=== PATIENT | female | born 1975 | race Caucasian/White ===

== ENCOUNTER → 2017-02-02 | Outpatient (CLI) | payer OTHER ==
[~2017-02-02] MED LIST: ALBU1AER9 INH; ATV5 PO; BUDE1TAB PO; CETI10TA84 PO; CYCL5TAB PO; DIPH25CA65 PO; DOCU-94 PO; HYDR-5688 PO; IBUP-103 PO; LISI-461 PO; METF500T5 PO; MINO2SOL TOP; MULT-506 PO; PRLSR20 PO; PROM25TA9 PO; PSYL0.524 PO
--- NOTE | 2017-02-02 08:30 | DIAGNOSTIC IMAGING REPORT ---
ABDOMINAL ULTRASOUND, RIGHT UPPER QUADRANT HISTORY: Pain. Nausea. ABDOMINAL PAIN, CHOLELITHIASIS. COMPARISON: None. FINDINGS: Pancreas: The pancreas demonstrates a normal echotexture. Liver: Mild fatty infiltration Gallbladder: Multiple small gallstones bilaterally as well as gallbladder sludge. CBD: 5 mm Right kidney: No hydronephrosis. IMPRESSION: Multiple small gallstones with a trace amount of gallbladder sludge within the gallbladder lumen. Normal caliber bile ducts. Fatty infiltration of liver. Electronically signed by: Eugene Daniel M.D. 02/02/2017 8:28 AM Dictated Date/Time: 02/02/2017 8:26 AM
== END | disposition home or self-care (01) ==
LOC: C.ULTRBC 07:44
PROVIDERS: ATTEND Physician Assistant Medical
DX: K80.20 Calculus of gallbladder without cholecystitis without obstruction (principal); K76.0 Fatty (change of) liver, not elsewhere classified

== ENCOUNTER → 2017-03-06 | Outpatient (CLI) | payer OTHER ==
--- NOTE | 2017-03-06 11:00 | DIAGNOSTIC IMAGING REPORT ---
CERVICAL SPINE 5 VIEWS CLINICAL HISTORY: Cervicalgia. FINDINGS: AP, lateral, bilateral oblique, and odontoid views of the cervical spine are compared to study dated 08/08/2011. The skeletal structures are well mineralized. There is no radiographic evidence of fracture or subluxation. The odontoid process and lateral masses appear intact on the open mouth view. The spinolaminar line is preserved. Vertebral body height and alignment are maintained. There is straightening of cervical lordosis with mild reversal centered at C4. 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 This also involves the posterior elements. The spinous processes appear intact. The intervertebral disc spaces are normal. There is no evidence of neuroforaminal stenosis on the oblique views. The prevertebral soft tissues are within normal limits. Visualized apical lung parenchyma appears clear. IMPRESSION: No acute bony abnormality is seen involving the cervical spine. Electronically signed by: Fran Nicole M.D. 03/06/2017 10:59 AM Dictated Date/Time: 03/06/2017 10:57 AM
[2017-03-06 14:52] LABS: BASO % 0.5 %; BASO ABS # 0.05 K/uL (0-0.2); COMPLETE YES; EOS % 1.1 %; IG% 0.2 %; LYMPH % 39.6 %; LYMPH ABS # 3.68 K/uL (1.2-3.4); MEAN CELL VOLUME 91.3 fL (80-100); MEAN CORPUSCULAR HEMOGLOBIN 30.5 pg (25-34); MEAN CORPUSCULAR HGB CONC 33.4 g/dl (32-36); MEAN PLATELET VOLUME 10.9 fL (7.4-10.4); MONO % 7.6 %; PLATELET COUNT 321 K/uL (130-400); RED BLOOD COUNT 4.49 M/uL (4.2-5.4); WHITE BLOOD COUNT 9.29 K/uL (4.8-10.8)
[2017-03-06 15:14] LABS: ALT/SGPT 138 U/L (12-78); BLOOD UREA NITROGEN 14 mg/dl (7-18); BUN/CREATININE RATIO 26.2 (10-20); CARBON DIOXIDE 25 mmol/L (21-32); CHLORIDE 105 mmol/L (98-107); CHOLESTEROL 225 mg/dl (0-200); CREATININE 0.53 mg/dl (0.60-1.20); GLUCOSE 104 mg/dl (70-99); POTASSIUM 3.7 mmol/L (3.5-5.1); SODIUM 139 mmol/L (136-145); TRIGLYCERIDES 179 mg/dl (0-150); VERY LOW DENSITY LIPOPROT CALC 36 mg/dl
[2017-03-06 15:17] LABS: CALCIUM 9.4 mg/dl (8.5-10.1)
[2017-03-06 15:18] LABS: ALB/GLOB RATIO 1.3 (0.9-2); ALKALINE PHOSPHATASE 42 U/L (45-117); AST/SGOT 50 U/L (15-37); CHOLESTEROL/HDL RATIO 5.2; HDL CHOLESTEROL 43 mg/dl; LDL CHOLESTEROL CALCULATED 146 mg/dl
[2017-03-07 06:24] LABS: ESTIMATED AVERAGE GLUCOSE 123 mg/dl; HA1C FLAG Normal (Normal)
== END | disposition home or self-care (01) ==
LOC: C.RADBC 10:15
PROVIDERS: ATTEND Internal Medicine
DX: M54.2 Cervicalgia (principal); E78.1 Pure hyperglyceridemia

== ENCOUNTER → 2017-03-09 | Outpatient (CLI) | payer OTHER ==
[2017-03-09 12:34] LABS: HEPATITIS B AB NEG
== END | disposition home or self-care (01) ==
LOC: C.LABBFT 08:05
PROVIDERS: ATTEND Internal Medicine
DX: R79.89 Other specified abnormal findings of blood chemistry (principal); K76.0 Fatty (change of) liver, not elsewhere classified

== ENCOUNTER 2017-04-02 06:59 | Observation (INO) | payer OTHER ==
[2017-03-22 09:43] VITALS: BMI 35.0
--- NOTE | 2017-03-22 10:21 | PAT Medication Instructions ---
Service Date Mar 22, 2017. Current Home Medication List Albuterol (Proair Hfa), 1 PUFF INH DAILY PRN for Shortness of Breath Cetirizine (Zyrtec), 10 MG PO PRN Cyclobenzaprine Hcl (Flexeril), 5 MG PO HS PRN for RN Diphenhydramine Hcl (Benadryl Allergy), 2 CAP PO PRN Docusate Sodium (Colace), 1 CAP PO BID PRN for PRN Ibuprofen Tab (Advil), 200 MG PO TID PRN for RN Lisinopril (Zestril), 10 MG PO QAM Lorazepam (Ativan *), 0.5 MG PO for Anxiety Metformin Hcl Er (Glucophage Er), 1,000 MG PO QPM Minoxidil (Topical) (Rogaine For Women), 1 DOSE TOP QAM Multivitamin (Multivitamin), 1 TAB PO QAM Omeprazole (Prilosec), 20 MG PO QAM Psyllium (Metamucil), 1 DOSE PO PRN Medication Instructions For Your Scheduled Surgery - Hold the following medications 48 hours prior to surgery: Metformin Hcl Er (Glucophage Er), 1,000 MG PO QPM - Hold the following medications the morning of surgery: Psyllium (Metamucil), 1 DOSE PO PRN Ibuprofen Tab (Advil), 200 MG PO TID PRN for RN (takes only occasionally- not told to hold by surgeon) Multivitamin (Multivitamin), 1 TAB PO QAM Lisinopril (Zestril), 10 MG PO QAM Docusate Sodium (Colace), 1 CAP PO BID PRN for PRN Diphenhydramine Hcl (Benadryl Allergy), 2 CAP PO PRN Cetirizine (Zyrtec), 10 MG PO PRN Minoxidil (Topical) (Rogaine For Women), 1 DOSE TOP QAM - Take the following medications the morning of surgery with a sip of water: Omeprazole (Prilosec), 20 MG PO QAM Lorazepam (Ativan *), 0.5 MG PO for Anxiety Albuterol (Proair Hfa), 1 PUFF INH DAILY PRN for Shortness of Breath (bring with you to hospital on day of surgery/ use if needed) - Take the following medications as scheduled the night before surgery: Docusate Sodium (Colace), 1 CAP PO BID PRN for PRN Cyclobenzaprine Hcl (Flexeril), 5 MG PO HS PRN for RN Albuterol (Proair Hfa), 1 PUFF INH DAILY PRN for Shortness of Breath If you have any questions please call us at [phone] or [phone] ( [place]) or [phone]
[~2017-04-02] VITALS: Ht 162.6 cm; Wt 93.6 kg
[2017-04-02] VITALS (9 sets, daily range): BP systolic 100–114; BP diastolic 63–76; PULSE 69–91; TEMP 36.7–37.1; O2SAT 93–99; Ht 162.6 cm; Wt 93.6 kg
[~2017-04-02 06:59] MED LIST changes: -BUDE1TAB PO; +CEFUROXIME IV 1,500 MG in DEXTROSE 5% 100ML IV SCH; -HYDR-5688 PO; +LACTATED RINGER'S 1000ML 1,000 ML IV SCH; -PROM25TA9 PO
[2017-04-02] MEDS ORDERED: MIDAZOLAM HCL 1 MG/ML 2ML VIAL ONE (07:41)
[2017-04-02] MEDS ORDERED: FENTANYL CITRATE INJ 50 MCG/1 ML 2 ML VIAL ONE ×4 (07:41→10:32)
--- NOTE | 2017-04-02 08:15 | History & Physical Bridge Note ---
H&P Re-Evaluation Bridge Note: I have examined the patient, reviewed the History & Physical and in the interval since the performance of the History & Physical I have noted the following changes of clinical significance: Dr Nuno requeste a liver bx- will attempt this at time of lap fang- discussed with pt and family
[2017-04-02] MEDS ORDERED: BUPIVACAINE 0.5 % 5 MG/1 ML MPF 30ML VIAL ONE (09:07)
[2017-04-02] MEDS ORDERED: ACETAMINOPHEN 1000 MG/100 ML IV IV ONE (09:17)
[2017-04-02] MEDS ORDERED: ROCURONIUM BROMIDE 10 MG/ML 5 ML VIAL ONE (09:29)
[2017-04-02] MEDS ORDERED: LIDOCAINE HCL 2% 2 ML VIAL (20MG/ML) ONE (09:29)
[2017-04-02] MEDS ORDERED: ONDANSETRON INJ 2 MG/ML 2 ML VIAL ONE ×2 (09:29→10:16)
[2017-04-02] MEDS ORDERED: GLYCOPYRROLATE INJ 0.2 MG/ML VIAL ONE (09:29)
[2017-04-02] MEDS ORDERED: PROPOFOL IV EMULSION 10 MG/ML 20 ML VIAL IV ONE ×2 (09:29)
[2017-04-02] MEDS ORDERED: NEOSTIGMINE METHYLSULFATE 5 MG/5 ML SYR ONE (09:29)
[2017-04-02] MEDS ORDERED: DEXAMETHASONE SOD INJ 4 MG/ML VIAL ONE (09:29)
--- NOTE | 2017-04-02 10:02 | [facility] Post Operative Brief Note ---
Immediate Operative Summary Operative Date Apr 02, 2017. Pre-Operative Diagnosis Biliary Colic Post-Operative Diagnosis Same Procedure(s) Performed Laparoscopic Cholecystectomy attempted liver bx Surgeon Dr Suarez Evening Anchor Surgeon(s) Brad Altamirano PA-C Estimated Blood Loss 15 ml Findings normal appearing liver, multiple Lg gallstones Specimens A. gallbladder Anesthesia gen Complication(s) None Disposition Recovery Room / PACU
[2017-04-02] MEDS ORDERED: HYDR-5688 PO (10:11)
[2017-04-02] MEDS ORDERED: ALBUTEROL HFA 8 GM INHALER INH PRN (10:15)
[2017-04-02] MEDS ORDERED: ATROPINE SULFATE 0.1 MG/ML 5ML SYR IV PRN (10:15)
[2017-04-02] MEDS ORDERED: PROMETHAZINE HCL INJ 25 MG in SODIUM CHLORIDE 0.9% 50ML 50 ML IV PRN (10:15)
[2017-04-02] MEDS ORDERED: PROMETHAZINE HCL INJ 12.5 MG in SODIUM CHLORIDE 0.9% 50ML 50 ML IV PRN (10:15)
[2017-04-02] MEDS ORDERED: HYDROCODONE/ACETAMOPHEN 5/325MG TAB PO PRN ×2 (10:15)
[2017-04-02] MEDS ORDERED: MoRPHine SULFATE 4 MG/ML 1 ML CARP\\VIAL IV PRN (10:15)
[2017-04-02] MEDS ORDERED: FENTANYL CITRATE INJ 50 MCG/1 ML 2 ML VIAL IV PRN (10:15)
[2017-04-02] MEDS ORDERED: LABETALOL HCL IV 5 MG/ML 20ML IV PRN (10:15)
[2017-04-02] MEDS ORDERED: ONDANSETRON INJ 2 MG/ML 2 ML VIAL IV PRN (10:15)
[2017-04-02] MEDS ORDERED: KETOROLAC TROMETHAMINE 30 MG/ML VIAL IV. PRN (10:15)
[2017-04-02] MEDS ORDERED: KETOROLAC TROMETHAMINE 30 MG/ML VIAL ONE (10:16)
--- NOTE | 2017-04-02 10:16 | Discharge Instructions ---
Discharge Instructions Date of Service Apr 02, 2017. Admission Reason for Admission: Ruq Abdominal Pain, Biliary Colic, Diabetes Discharge Discharge Diagnosis / Problem: chronic cholecystitis Discharge Goals Goal(s): Decrease discomfort, Improve function, Improve disease control Activity Recommendations Activity Limitations: as noted below Lifting Limitations: no more than 25 pounds Exercise/Sports Limitations: until after follow-up appointment May Resume Sexual Activity: when tolerated Shower/Bathe: tomorrow Driving or Machine Use: resume 3 days after discharge SPECIAL CARE INSTRUCTIONS: * Cover incisions and change daily for comfort/drainage. * May use ibuprofen for pain as tolerated. * Expect some swelling and bruising. Call your doctor if: * Temperature above 101 degrees * Pain not relieved by pain medicine ordered * There is increased drainage or redness from any incision * You have any unanswered questions or concerns [phone]. FOLLOW UP VISIT: If not already scheduled, please call the office for a follow-up visit. for next week- some sutures OFFICE PHONE NUMBER: Dr. Suarez Office . Current Hospital Diet Patient's current hospital diet: Diabetes Type 2 Diet Discharge Diet Recommended Diet: Diabetes Type 2 Diet Procedures Procedures Performed: Laparoscopic Cholecystectomy attempted liver bx Pending Studies Studies pending at discharge: no Laboratory Results Hemoglobin A1c Test 03/06/17 10:20 Range/Units Estimated Average Glucose 123 mg/dl Hemoglobin A1c 5.9 H 4.5-5.6 % Lipid Panel Test 03/06/17 10:20 Range/Units Triglycerides Level 179 H 0-150 mg/dl Cholesterol Level 225 H 0-200 mg/dl HDL Cholesterol 43 mg/dl Cholesterol/HDL Ratio 5.2 LDL Cholesterol, Calculated 146 mg/dl Medical Emergencies . Who to Call and When: Medical Emergencies: If at any time you feel your situation is an emergency, please call 911 immediately. . Non-Emergent Contact Non-Emergency issues call your: Primary Care Provider, Surgeon . "Provider Documentation" section prepared by Hollis Suarez. . VTE Core Measure Inpt VTE Proph given/why not?: SCD's
--- NOTE | 2017-04-02 10:46 | Anesthesiology Progress Note ---
Anesthesia Post Op Note Date & Time Apr 02, 2017 at 10:46 Vital Signs Pain Intensity: 4 Vital Signs Past 12 Hours Date Time Temp Pulse Resp B/P (MAP) Pulse Ox O2 Delivery O2 Flow Rate FiO2 04/02/17 10:30 68 16 112/71 100 Mask 2 04/02/17 10:20 65 16 122/82 100 Mask 10 04/02/17 10:10 70 16 121/83 100 Mask 10 04/02/17 10:03 36.6 92 16 133/81 98 Mask 10 04/02/17 07:46 37.1 88 18 113/76 (88) 99 Room Air
[2017-04-02] MEDS ORDERED: PROMETHAZINE HCL INJ 6.25 MG in SODIUM CHLORIDE 0.9% 50ML 50 ML IV PRN (11:00)
--- NOTE | 2017-04-02 11:03 | OPERATIVE REPORT ---
DATE OF OPERATION: 04/02/2017 NAME OF OPERATION: Laparoscopic cholecystectomy with attempted liver biopsy. PREOPERATIVE DIAGNOSES: Biliary colic with cholelithiasis and mildly elevated LFTs. POSTOPERATIVE DIAGNOSIS: Same. STAFF SURGEON: Dr. Suarez. ASSOCIATE PROFESSOR OF LIBRARY MEDIA: Brad Altamirano PA-C. DESCRIPTION OF PROCEDURE: The patient was brought in the operating room and placed on the operating table in supine position, orogastric tube, pneumatic stockings were placed. Her abdomen was prepped and draped in usual fashion. Using 0.5% plain Marcaine, all incisions were anesthetized. Incision was made above the umbilicus, carrying dissection down through significant adipose tissue, identifying the fascia, placing a Veress needle producing pneumoperitoneum. An 11 mm port placed at this level. Under visualization, three 5 mm ports placed, 1 cephalad and 2 laterally. The patient was placed in reverse Trendelenburg position, rotated to the left. At this point, the gallbladder was grasped and retracted. It was somewhat difficult secondary to the size of the liver and her body habitus, but we were able to dissect the eugenie hepatis, identifying multiple large stones in the gallbladder. The cystic duct and cystic artery were identified. These were clipped and transected and the gallbladder dissected away from the liver bed in the usual fashion. At this point, through a separate small stab incision, I attempted to perform liver biopsy using a Jose-Cut needle with the pneumoperitoneum and thick adipose tissue. I was unable to pass the Jose-Cut needle safely. At this point, the gallbladder was placed in an Endobag and then removed through the umbilical site. I did have to enlarge the umbilical fascial incision secondary to the number of stones in the gallbladder. All ports were then removed. The fascia at the umbilicus closed using interrupted 0 PDS suture and then the skin reapproximated using 5-0 Prolene suture. The patient was transferred to recovery room in stable condition. I attest to the content of the Intraoperative Record and any orders documented therein. Any exception s are noted below.
[2017-04-02] MEDS ORDERED: IV FLUIDS COMPLETED PRN (11:15)
[2017-04-02] MEDS: PROMETHAZINE HCL INJ 12.5 MG in SODIUM CHLORIDE 0.9% 50ML 50 ML IV PRN ×2 (12:13→21:18)
[2017-04-02] MEDS ORDERED: LACTATED RINGER'S 1000ML 1,000 ML IV SCH (12:30)
[2017-04-02] MEDS: MoRPHine SULFATE 2 MG/ML CARP IV PRN ×2 (13:24→18:59)
[2017-04-02] MEDS ORDERED: LORAZEPAM INJ 0.5 MG in SYRINGE 0.25 ML IV PRN (13:45)
[2017-04-02] MEDS ORDERED: LORAZEPAM 0.5 MG TAB PO PRN (14:00)
[2017-04-02] MEDS: CEFUROXIME IV 1,500 MG in DEXTROSE 5% 100ML 100 ML IV SCH ×2 (14:36→21:43)
[2017-04-02 14:49] LABS: BASO % 0.2 %; BASO ABS # 0.02 K/uL (0-0.2); COMPLETE YES; IG% 0.2 %; LYMPH % 9.1 %; LYMPH ABS # 0.99 K/uL (1.2-3.4); MEAN CELL VOLUME 88.3 fL (80-100); MEAN CORPUSCULAR HEMOGLOBIN 29.1 pg (25-34); MEAN PLATELET VOLUME 9.4 fL (7.4-10.4); MONO % 1.1 %; NEUT % 89.4 %; PLATELET COUNT 311 K/uL (130-400); RED BLOOD COUNT 4.53 M/uL (4.2-5.4)
[2017-04-02 15:15] LABS: BUN/CREATININE RATIO 16.8 (10-20); CALCIUM 8.4 mg/dl (8.5-10.1); CREATININE 0.51 mg/dl (0.60-1.20); POTASSIUM 4.1 mmol/L (3.5-5.1)
--- NOTE | 2017-04-02 16:16 | History and Physical ---
History & Physical Date & Time of Service: Apr 02, 2017 at 15:20 Chief Complaint: Ruq Abdominal Pain, Biliary Colic, Diabetes Primary Care Physician: Man Nuno M.D. History of Present Illness Patient is a 41 year old female with a past medical history of hypertension and diabetes that is day 0 s/p laparoscopic cholecystectomy. The patient is currently doing well with no acute complaints after the surgery. She did have some nausea afterwards but was treated with Phenergan and is feeling better. She denies any chest pain, cough, shortness of breath, pain in her calves, headache, lightheadedness, or fever. She does appreciate some abdominal discomfort over the right side of the abdomen over the surgical sites. She did not take her morning doses of metformin or lisinopril today. Past Medical/Surgical History Medical Problems: (1) Asthma Status: Chronic (2) IBS (irritable bowel syndrome) Status: Chronic Family History Cancer Diabetes mellitus Hypertension No significant family history Social History Social EtOH use, No tobacco use Smoking Status: Never Smoker Smokeless Tobacco Use: No Alcohol Use: socially Drug Use: none Marital Status: Housing status: lives with family Occupational Status: employed Multi-Drug Resistant Organisms History of MDRO: No Allergies Coded Allergies: Cat Dander (Verified Allergy, Unknown, CAT AND DOG DANDER-ITCHY SNEEZING, 03/27/17) Metaxalone (Verified Allergy, Unknown, UNKNOWN, 03/27/17) POLLEN (Verified Allergy, Unknown, SNEEZING,ITCHY EYES, 03/27/17) Home Medications Scheduled Cetirizine (Zyrtec), 10 MG PO PRN Diphenhydramine Hcl (Benadryl Allergy), 2 CAP PO PRN Lisinopril (Zestril), 10 MG PO QAM Metformin Hcl Er (Glucophage Er), 1,000 MG PO QPM Minoxidil (Topical) (Rogaine For Women), 1 DOSE TOP QAM Multivitamin (Multivitamin), 1 TAB PO QAM Omeprazole (Prilosec), 20 MG PO QAM Psyllium (Metamucil), 1 DOSE PO PRN Scheduled PRN Albuterol (Proair Hfa), 1 PUFF INH DAILY PRN for Shortness of Breath Cyclobenzaprine Hcl (Flexeril), 5 MG PO HS PRN for RN Docusate Sodium (Colace), 1 CAP PO BID PRN for PRN Hydrocodone/Acetaminophen 5MG/325MG ([place] 5MG/325MG), 1-2 TABLET PO q 6 hrs PRN for Pain Ibuprofen Tab (Advil), 200 MG PO TID PRN for RN Lorazepam (Ativan *), 0.5 MG PO for Anxiety Review of Systems Constitutional: + problem reported (Nausea), No fever, No chills Eyes: No diplopia Respiratory: No cough, No shortness of breath Cardiovascular: No chest pain, No edema, No palpitations Abdomen: + pain (Right side of the abdomen over the incisional sites), No nausea, No vomiting, No GI bleeding Genitourinary - Female: No dysuria Endocrine: + fatigue Integumentary: No rash Physical Exam Vital Signs Date Time Temp Pulse Resp B/P (MAP) Pulse Ox O2 Delivery O2 Flow Rate FiO2 04/02/17 14:32 36.8 85 18 100/65 (77) 97 Nasal Cannula 2.0 04/02/17 13:31 36.8 73 16 106/70 (82) 96 Nasal Cannula 2.0 04/02/17 12:38 69 18 114/73 (87) 97 Nasal Cannula 2.0 04/02/17 12:11 36.8 69 16 111/74 (86) 96 Nasal Cannula 2.0 04/02/17 11:30 Nasal Cannula 2.0 04/02/17 11:30 36.7 75 18 108/70 (83) 98 Nasal Cannula 2.0 04/02/17 11:30 Nasal Cannula 04/02/17 11:05 36.5 67 16 124/74 98 Nasal Cannula 2 04/02/17 10:50 67 16 114/72 98 Nasal Cannula 2 04/02/17 10:40 67 16 115/75 100 Nasal Cannula 2 04/02/17 10:30 68 16 112/71 100 Mask 2 04/02/17 10:20 65 16 122/82 100 Mask 10 04/02/17 10:10 70 16 121/83 100 Mask 10 04/02/17 10:03 36.6 92 16 133/81 98 Mask 10 04/02/17 07:46 37.1 88 18 113/76 (88) 99 Room Air General Appearance: WD/WN, no apparent distress Head: normocephalic, atraumatic Eyes: normal inspection, sclerae normal Respiratory/Chest: chest non-tender, lungs clear, normal breath sounds Cardiovascular: regular rate, rhythm, no edema, no gallop, no murmur, normal peripheral pulses Abdomen/GI: normal bowel sounds, + pertinent finding (Tenderness over right side of abdomen, Dressings over 5 laparoscopic sites c/d/i with dressings overtop) Extremities/Musculoskelatal: normal inspection, no calf tenderness, no pedal edema Neurologic/Psych: no motor/sensory deficits, alert, normal mood/affect, oriented x 3 Skin: no rash Diagnostics Laboratory Results Results Past 24 Hours Test 04/02/17 07:21 04/02/17 07:24 04/02/17 11:13 04/02/17 14:35 Range/Units Bedside Urine Test NEG NEG Bedside Glucose 127 125 70-90 mg/dl White Blood Count 10.90 4.8-10.8 K/uL Red Blood Count 4.53 4.2-5.4 M/uL Hemoglobin 13.2 12.0-16.0 g/dL Hematocrit 40.0 37-47 % Mean Corpuscular Volume 88.3 80-100 fL Mean Corpuscular Hemoglobin 29.1 25-34 pg Mean Corpuscular Hemoglobin Concent 33.0 32-36 g/dl Platelet Count 311 130-400 K/uL Mean Platelet Volume 9.4 7.4-10.4 fL Neutrophils (%) (Auto) 89.4 % Lymphocytes (%) (Auto) 9.1 % Monocytes (%) (Auto) 1.1 % Eosinophils (%) (Auto) 0.0 % Basophils (%) (Auto) 0.2 % Neutrophils # (Auto) 9.75 1.4-6.5 K/uL Lymphocytes # (Auto) 0.99 1.2-3.4 K/uL Monocytes # (Auto) 0.12 0.11-0.59 K/uL Eosinophils # (Auto) 0.00 0-0.5 K/uL Basophils # (Auto) 0.02 0-0.2 K/uL RDW Standard Deviation 40.8 36.4-46.3 fL RDW Coefficient of Variation 12.6 11.5-14.5 % Immature Granulocyte % (Auto) 0.2 % Immature Granulocyte # (Auto) 0.02 0.00-0.02 K/uL Sodium Level 142 136-145 mmol/L Potassium Level 4.1 3.5-5.1 mmol/L Chloride Level 107 98-107 mmol/L Carbon Dioxide Level 27 21-32 mmol/L Anion Gap 8.0 3-11 mmol/L Blood Urea Nitrogen 9 7-18 mg/dl Creatinine 0.51 0.60-1.20 mg/dl Est Creatinine Clear Calc Drug Dose 162.7 ml/min Estimated GFR () 139.4 Estimated GFR (Non- 120.3 BUN/Creatinine Ratio 16.8 10-20 Random Glucose 134 70-99 mg/dl Calcium Level 8.4 8.5-10.1 mg/dl Impression Assessment and Plan Patient is a 41 year old female that is day 0 s/p laparoscopic cholecystectomy 1) Laparoscopic Cholecystectomy Day 0 - Patient being monitored by General Surgeon Dr. Suarez - No complications during surgery - Plan to discharge home tomorrow 2) Diabetes Mellitus Type 2 - Resume Metformin home dose on discharge 3) Hypertension - Blood pressure stable - Resume Lisinopril home dose on discharge 4) DVT Prophylaxis - SCDs - As per surgery 5) Dispo - Plan to discharge home tomorrow 6) Code Status - Full Code I agree with resident assessment and plan and have seen and examined pt myself VSS and labs reviewed Cont management for DMII and HTN Pain controlled OK to DC from medical standpoint Dispo and DVT ppx per primary team Level of Care Med/Surg VTE Prophylaxis VTE Risk Assessment Done? Y/N: Yes Risk Level: Moderate Given or contraindicated: SCD's
[2017-04-02] MEDS: ONDANSETRON INJ 2 MG/ML 2 ML VIAL IV PRN (17:07)
[2017-04-03] MEDS: MoRPHine SULFATE 2 MG/ML CARP IV PRN ×2 (00:07→05:25)
[2017-04-03 04:04] VITALS: BP 108/71; PULSE 80; TEMP 36.7; O2SAT 95
[2017-04-03] MEDS: ONDANSETRON INJ 2 MG/ML 2 ML VIAL IV PRN (05:24)
[2017-04-03 06:17] LABS: HEMATOCRIT 37.1 % (37-47); MEAN CELL VOLUME 89.8 fL (80-100); MEAN CORPUSCULAR HEMOGLOBIN 30.3 pg (25-34); MEAN CORPUSCULAR HGB CONC 33.7 g/dl (32-36); MEAN PLATELET VOLUME 9.8 fL (7.4-10.4); PLATELET COUNT 298 K/uL (130-400); RED BLOOD COUNT 4.13 M/uL (4.2-5.4); WHITE BLOOD COUNT 11.32 K/uL (4.8-10.8)
[2017-04-03 06:58] LABS: ALB/GLOB RATIO 1.1 (0.9-2); ALKALINE PHOSPHATASE 41 U/L (45-117); ALT/SGPT 102 U/L (12-78); AST/SGOT 52 U/L (15-37); BLOOD UREA NITROGEN 8 mg/dl (7-18); BUN/CREATININE RATIO 16.6 (10-20); CALCIUM 8.2 mg/dl (8.5-10.1); CARBON DIOXIDE 28 mmol/L (21-32); CHLORIDE 107 mmol/L (98-107); CREATININE 0.49 mg/dl (0.60-1.20); GLUCOSE 95 mg/dl (70-99); POTASSIUM 3.4 mmol/L (3.5-5.1); SODIUM 142 mmol/L (136-145)
[2017-04-03] MEDS ORDERED: PROM25TA9 PO (07:17)
[2017-04-03] MEDS ORDERED: POTASSIUM CHLR 10 MEQ / WTR 10 MEQ in PREMIXED WATER 100 ML IV SCH (07:30)
[2017-04-03 07:51] VITALS: BP 114/75; PULSE 66; TEMP 36.2; O2SAT 95
[2017-04-03 08:04] VITALS: O2SAT 95
--- NOTE | 2017-04-03 08:40 | DISCHARGE SUMMARY ---
PRINCIPAL DIAGNOSIS: Biliary colic. HISTORY OF PRESENT ILLNESS: The patient is a 41-year-old female, who has been having upper abdominal pain and found on ultrasound to have multiple gallstones, brought into the hospital for elective cholecystectomy. On 04/02/2017, the patient was taken to the operating room where she underwent laparoscopic cholecystectomy and attempted a liver biopsy requested by Dr. Nuno. I was unable to perform the liver biopsy secondary to the needle not being long enough to perform it laparoscopically. Her liver did appear to be normal with mild fatty infiltrate. She did very well from her operation, and is felt stable for discharge home today to be followed in the surgical clinic within 1 week.
[2017-04-03 08:59] VITALS: BP 114/75; PULSE 66; TEMP 36.2; O2SAT 95
[2017-04-03] MEDS ORDERED: LISINOPRIL 10 MG TAB PO SCH (09:00)
[2017-04-03] MEDS ORDERED: PANTOprazole SOD 40 MG TAB PO SCH (09:00)
== END 2017-04-03 09:30 | disposition home or self-care (01) ==
LOC: C.ACU 06:59 → C.MSW 10:10 → ENRESERV 10:32
PROVIDERS: ADMIT Surgery; ATTEND Surgery
DX: K80.10 Calculus of gallbladder with chronic cholecystitis without obstruction (principal); J45.909 Unspecified asthma, uncomplicated; E11.9 Type 2 diabetes mellitus without complications; K21.9 Gastro-esophageal reflux disease without esophagitis; E78.1 Pure hyperglyceridemia; I10 Essential (primary) hypertension; K58.9 Irritable bowel syndrome, unspecified

== ENCOUNTER → 2017-06-01 | Outpatient (CLI) | payer OTHER ==
[~2017-06-01] MED LIST changes: -CEFUROXIME IV 1,500 MG in DEXTROSE 5% 100ML IV SCH; +HYDR-5688 PO; -LACTATED RINGER'S 1000ML 1,000 ML IV SCH; +PROM25TA9 PO
--- NOTE | 2017-06-01 13:15 | DIAGNOSTIC IMAGING REPORT ---
BILATERAL LOWER EXTREMITY VENOUS DOPPLER HISTORY: PERIPHERAL EDEMA COMPARISON STUDY: None. FINDINGS: There is normal compressibility, flow, and augmentation within the bilateral lower extremity deep venous systems. IMPRESSION: No DVT within the right or left lower extremity. Electronically signed by: Norberto Lovelace M.D. 06/01/2017 1:14 PM Dictated Date/Time: 06/01/2017 1:13 PM
[2017-06-01 13:37] LABS: BASO % 0.5 %; BASO ABS # 0.04 K/uL (0-0.2); COMPLETE YES; EOS % 1.9 %; IG% 0.1 %; LYMPH % 35.8 %; LYMPH ABS # 3.09 K/uL (1.2-3.4); MEAN CELL VOLUME 89.9 fL (80-100); MEAN CORPUSCULAR HEMOGLOBIN 30.6 pg (25-34); MEAN PLATELET VOLUME 10.2 fL (7.4-10.4); MONO % 7.9 %; NEUT % 53.8 %; PLATELET COUNT 347 K/uL (130-400); RED BLOOD COUNT 4.45 M/uL (4.2-5.4); WHITE BLOOD COUNT 8.63 K/uL (4.8-10.8)
[2017-06-01 14:14] LABS: ALB/GLOB RATIO 1.2 (0.9-2); AST/SGOT 48 U/L (15-37); BLOOD UREA NITROGEN 14 mg/dl (7-18); BUN/CREATININE RATIO 24.1 (10-20); CALCIUM 9.5 mg/dl (8.5-10.1); CARBON DIOXIDE 26 mmol/L (21-32); CHLORIDE 103 mmol/L (98-107); CREATININE 0.59 mg/dl (0.60-1.20); GLUCOSE 102 mg/dl (70-99); POTASSIUM 3.7 mmol/L (3.5-5.1); SODIUM 137 mmol/L (136-145)
[2017-06-01 14:36] LABS: ALKALINE PHOSPHATASE 49 U/L (45-117); ALT/SGPT 110 U/L (12-78)
== END | disposition home or self-care (01) ==
LOC: C.ULTRBC 12:13
PROVIDERS: ATTEND Physician Assistant Medical
DX: I10 Essential (primary) hypertension (principal); K21.9 Gastro-esophageal reflux disease without esophagitis; R20.2 Paresthesia of skin; R79.89 Other specified abnormal findings of blood chemistry; R60.9 Edema, unspecified

== ENCOUNTER → 2017-10-04 | Outpatient (CLI) | payer OTHER ==
[~2017-10-04] MED LIST changes: -HYDR-5688 PO
[2017-10-04 13:12] LABS: BASO % 0.4 %; BASO ABS # 0.03 K/uL (0-0.2); COMPLETE YES; EOS % 1.6 %; IG% 0.1 %; LYMPH % 36.1 %; LYMPH ABS # 2.65 K/uL (1.2-3.4); MEAN CELL VOLUME 90.3 fL (80-100); MEAN CORPUSCULAR HEMOGLOBIN 30.2 pg (25-34); MEAN CORPUSCULAR HGB CONC 33.4 g/dl (32-36); MEAN PLATELET VOLUME 10.1 fL (7.4-10.4); NEUT % 53.8 %; PLATELET COUNT 328 K/uL (130-400); RED BLOOD COUNT 4.54 M/uL (4.2-5.4); WHITE BLOOD COUNT 7.34 K/uL (4.8-10.8)
[2017-10-04 13:21] LABS: ALT/SGPT 69 U/L (12-78); BLOOD UREA NITROGEN 10 mg/dl (7-18); BUN/CREATININE RATIO 17.1 (10-20); CALCIUM 8.9 mg/dl (8.5-10.1); CARBON DIOXIDE 26 mmol/L (21-32); CHLORIDE 105 mmol/L (98-107); CHOLESTEROL 217 mg/dl (0-200); CREATININE 0.59 mg/dl (0.60-1.20); GLUCOSE 112 mg/dl (70-99); SODIUM 137 mmol/L (136-145); TRIGLYCERIDES 166 mg/dl (0-150); VERY LOW DENSITY LIPOPROT CALC 33 mg/dl
[2017-10-04 13:24] LABS: ALB/GLOB RATIO 1.3 (0.9-2); ALKALINE PHOSPHATASE 47 U/L (45-117); AST/SGOT 28 U/L (15-37); CHOLESTEROL/HDL RATIO 4.8; ESTIMATED AVERAGE GLUCOSE 120 mg/dl; HA1C FLAG Normal (Normal); HDL CHOLESTEROL 45 mg/dl; LDL CHOLESTEROL CALCULATED 139 mg/dl
== END | disposition home or self-care (01) ==
LOC: C.LABBFT 10:00
PROVIDERS: ATTEND Internal Medicine
DX: J45.909 Unspecified asthma, uncomplicated (principal); I10 Essential (primary) hypertension; R79.89 Other specified abnormal findings of blood chemistry; E11.9 Type 2 diabetes mellitus without complications; E78.1 Pure hyperglyceridemia; K76.0 Fatty (change of) liver, not elsewhere classified

== ENCOUNTER → 2017-10-16 | Outpatient (CLI) | payer OTHER ==
[~2017-10-16] MED LIST changes: -PROM25TA9 PO
--- NOTE | 2017-10-16 12:10 | DIAGNOSTIC IMAGING REPORT ---
CERVICAL SPINE 2 OR 3 VIEWS HISTORY: Pain M54.2 Neck painW19.XXXA FallM25.519 Shoulder [id number] COMPARISON: None. FINDINGS: The cervical spine is visualized from C1 through the superior endplate of T1. There is no fracture. No subluxation. Disc spaces are preserved. Prevertebral soft tissues and the atlantodens interval are intact. Mild straightening of the cervical curvature apparently due to muscular spasm IMPRESSION: No fracture or subluxation within the cervical spine. Mild muscle spasm. The above report was generated using voice recognition software. It may contain grammatical, syntax or spelling errors. Electronically signed by: Eugene Daniel M.D. 10/16/2017 12:09 PM Dictated Date/Time: 10/16/2017 12:09 PM
--- NOTE | 2017-10-16 12:12 | DIAGNOSTIC IMAGING REPORT ---
R SHOULDER MIN 2 VIEWS ROUTINE CLINICAL HISTORY: M54.2 Neck painW19.XXXA FallM25.519 Shoulder [id number] pain COMPARISON: None. DISCUSSION: The bones and joint spaces appear intact. There is no evidence of fracture, dislocation or bony disease. Minimal degenerative change glenohumeral as well as acromioclavicular joints. IMPRESSION: Minimal degenerative change. No acute bony abnormality. The above report was generated using voice recognition software. It may contain grammatical, syntax or spelling errors. Electronically signed by: Eugene Daniel M.D. 10/16/2017 12:10 PM Dictated Date/Time: 10/16/2017 12:10 PM
--- NOTE | 2017-10-16 12:13 | DIAGNOSTIC IMAGING REPORT ---
R CLAVICLE CLINICAL HISTORY: M54.2 Neck painW19.XXXA FallM25.519 Shoulder [id number] trauma COMPARISON: None. DISCUSSION: The bones and joint spaces appear intact. There is no evidence of fracture, dislocation or bony disease. There is no evidence for soft tissue swelling. IMPRESSION: Negative study. The above report was generated using voice recognition software. It may contain grammatical, syntax or spelling errors. Electronically signed by: Eugene Daniel M.D. 10/16/2017 12:11 PM Dictated Date/Time: 10/16/2017 12:11 PM
--- NOTE | 2017-10-16 12:20 | DIAGNOSTIC IMAGING REPORT ---
R RIBS UNILATERAL WITH PA CHEST CLINICAL HISTORY: W19.XXXA FallM25.519 Shoulder [id number]. Right rib pain. COMPARISON STUDY: Chest 09/22/2013. FINDINGS: No rib fractures. No pneumothorax. The lungs are clear. The heart is normal in size. Cholecystectomy. No acute rib fractures. IMPRESSION: No acute rib fractures. No pneumothorax. Electronically signed by: Norberto Lovelace M.D. 10/16/2017 12:19 PM Dictated Date/Time: 10/16/2017 12:13 PM
== END | disposition home or self-care (01) ==
LOC: C.RADBC 10:49
PROVIDERS: ATTEND Physician Assistant Medical
DX: M54.2 Cervicalgia (principal); M25.511 Pain in right shoulder; R07.81 Pleurodynia; M62.838 Other muscle spasm; M89.8X1 Other specified disorders of bone, shoulder; W19.XXXA Unspecified fall, initial encounter

== ENCOUNTER → 2018-01-03 | Outpatient (CLI) | payer BC ==
--- NOTE | 2018-01-03 18:31 | DIAGNOSTIC IMAGING REPORT ---
TWO VIEW CHEST CLINICAL HISTORY: Acute bronchitis. FINDINGS: PA and lateral chest radiographs are compared to study dated 09/30/2014. The cardiomediastinal silhouette is unremarkable. Patchy airspace consolidation is identified in the lingula. The lungs are otherwise clear. No pleural effusion is seen. There is no pneumothorax. The bony thorax appears intact. Cholecystectomy clips are seen in the right upper quadrant. IMPRESSION: There is patchy airspace consolidation identified in the lingula, typical in appearance for pneumonia. Radiographic follow-up to resolution is recommended. Electronically signed by: Fran Nicole M.D. 01/03/2018 6:29 PM Dictated Date/Time: 01/03/2018 6:29 PM
== END | disposition home or self-care (01) ==
LOC: C.RAD 17:17
PROVIDERS: ATTEND Nurse Practitioner Adult Health
DX: J20.8 Acute bronchitis due to other specified organisms (principal)

== ENCOUNTER 2022-03-08 07:58 | Observation (INO) ==
[2022-03-08] MEDS ORDERED: SODIUM CHLORIDE 0.9% 1000ML 1,000 ML IV ONE (08:32)
--- NOTE | 2022-03-08 08:32 | Emergency Department Note ---
Impression & Plan Arm paresthesia, left, Arm weakness, Confusion ED Provider Note NAME: TATE ROBINS AGE: 46 SEX: F : 1975 ARRIVES VIA: Walk-In INFORMANT: Patient ED PROVIDER(S): Randolph Rey DO CHIEF COMPLAINT: blurry vision, FROST, Left arm weak HPI: Patient is a 46-year-old female with a past medical history hypertension, hyperlipidemia, diabetes, IBS who presents the ER for symptoms which have been present for the past 2 weeks. She notes that she has had a headache on the right side of her head off and on. Currently does not have a headache. She admits to breath blurry vision which has been present for the past 2 weeks. It is present bilaterally. He notes that over the past 2 to 3 days she has had left arm weakness. She is dropping things and having difficulty holding things. She is also noticed intermittently that her right eye will deviate outward. She denies any other weakness or numbness. No chest pain or shortness of breath. No nausea vomiting or diarrhea. No dysuria, urgency, or frequency. No other exacerbating or remitting factors. She was sent in by her PCP for further evaluation. Does admit to a family history of MS. Also admits to intermittent paresthesias and weakness over the past several months/years. ROS: See above HPI for pertinent positives & negatives. A total of 10 systems reviewed and were otherwise negative. PAST MEDICAL HISTORY:See Below PAST SURGICAL HISTORY:See Below FAMILY HISTORY:See Below SOCIAL HISTORY:See Below HOME MEDICATIONS:See Below ALLERGIES:See Below VITALS:See Below PHYSICAL EXAMINATION: GENERAL: Sitting up in bed, alert, well appearing, well nourished, no distress, non-toxic EYE EXAM: normal conjunctiva. PERRL and EOM's intact. OROPHARYNX: no exudate, no erythema, lips, buccal mucosa, and tongue normal and mucous membranes are moist NECK: supple, no nuchal rigidity, no adenopathy, non-tender LUNGS: Clear to auscultation. Normal chest wall mechanics HEART: no murmurs, S1 normal and S2 normal ABDOMEN: abdomen soft, non-tender, normo-active bowel sounds, no masses, no rebound or guarding. BACK: Back is symmetrical on inspection and there is no deformity, no midline tenderness, no CVA tenderness. SKIN: no rashes and no bruising UPPER EXTREMITIES: upper extremities are grossly normal. LOWER EXTREMITIES: No pitting edema. NEURO EXAM: Normal sensorium, cranial nerves II-XII intact, normal speech, left arm is weaker than right with grasp as well as flexion extension of the shoulder and elbow no weakness of legs. No drift. Finger to nose intact. Gross sensation intact. MEDICAL DECISION MAKING: Patient is a 46-year-old female who presents ER for the above-stated complaint. IV was established blood work was obtained. On exam she does have some noticeable weakness on the left upper extremity. Labs show no significant leukocytosis or anemia. INR was unremarkable. BMP with slightly elevated glucose at 147. Mild transaminitis. Troponin was negative. UA was clean. CT angios of the head and neck were negative. Patient was updated bedside. With her history of paresthesias and intermittent neurologic issues as well as a family history of MS I do question of this the main culprit. Does need to completely rule out a stroke. Did discuss with neurology and they agree. Discussed with Sandro Chaudhary for further evaluation. Triage Nursing notes reviewed. Limited review of prior medical records performed Vital Signs: reviewed and remarkable for HTN Differential diagnosis: Differential Diagnosis includes but is not limited to ischemic Stroke, hemorrhagic stroke, bells palsy, mass, neoplasm, migraine headache, seizure, subarachnoid hemorrhage, TIA, and transient global amnesia. ER treatment provided: See below Diagnostics interpreted by me: ECG: Sinus rhythm rate of 79 Normal axis No PVCs QTC 454 Cardiac Monitoring: An order was placed for continuous cardiac monitoring. The monitor shows a rate of 75 with sinus rhythm. Laboratory studies: As stated above and show below. Imaging studies: CT head as well as angios the head and neck were negative Consultation(s): Discussed with Dr. Demarco from neurology who agreed with admission Discussed with Sandro Chaudhary for further evaluation Procedures: none Critical Care: None Past Med/Surg History Medical History Chest pain Cholelithiasis Colitis Head pain Hepatic steatosis HTN (hypertension) Hyperlipidemia LDL goal <100 Hypertriglyceridemia, essential Memory loss Situational anxiety Transaminitis Type 2 diabetes mellitus Visual changes Surgical History History of breast reconstruction History of section History of cholecystectomy History of tooth extraction Family History Mother Cancer Grandmother Cardiac disorder Diabetes Uncle Diabetes Other Hypertension Denies family history of Ovarian cancer Prostate cancer Heart disease Myocardial infarction Breast cancer Lung cancer Colorectal cancer Social History Smoking Status: Never smoker Hx Alcohol Use: Yes Hx Substance Use: No Preferred Language: Polish Communication Ability: Effective Visual Impairment: No Limitations Hearing Ability: Normal Batch Unloader Required: No marital status: Current Living Situation: Spouse and Family current occupational status: employed current occupation: [employer] Feels Safe at Home: Yes Childhood Exposure to Second-Hand Smoke: No caffeine: Yes Dental Care, Regularly: Yes Physical Activity Frequency: 3-4 Times per Week Seatbelt Use: always Sunscreen Use: Yes Allergies Allergies Allergy/AdvReac Type Severity Reaction Status Date / Time cat dander Allergy Unknown CAT AND Verified 03/08/22 08:56 DOG DANDER-ITCHY SNEEZING metaxalone Allergy Unknown UNKNOWN Verified 03/08/22 08:56 pollen extracts Allergy Unknown SNEEZING,ITCHY Verified 03/08/22 08:56 EYES amoxicillin [From Augmentin] Allergy swelling Verified 03/08/22 08:56 clavulanic acid Allergy swelling Verified 03/08/22 08:56 [From Augmentin] Home Meds Home Medications Medication Instructions Recorded Confirmed cyanocobalamin (vitamin B-12) 1,000 mcg PO DAILY 08/14/19 03/08/22 1,000 mcg capsule Previous Rx's Medication Instructions Recorded albuterol sulfate 90 mcg/actuation 1 - 2 puffs INH Q6H PRN #18 gm 01/12/20 aerosol inhaler (ProAir HFA) atorvastatin 20 mg tablet 20 mg PO DAILY #90 tab 12/20/20 pantoprazole 40 mg tablet,delayed 40 mg PO DAILY #90 tab 04/11/21 release lisinopril 10 mg tablet 10 mg PO DAILY #90 tab 11/25/21 blood sugar diagnostic #90 ea 12/08/21 blood-glucose meter #1 ea 12/08/21 lancets 33 gauge (OneTouch Delica #100 ea 12/08/21 Lancets) dulaglutide 3 mg/0.5 mL 3 mg SUBCUT .weekly #2 ml 12/15/21 [facility] metformin 500 mg tablet,extended See Rx Instructions .ROUTE 12/15/21 release 24 hr .COMPLEX #360 tab lorazepam 0.5 mg tablet 0.5 mg PO Q12H PRN #30 tab 12/28/21 escitalopram oxalate 10 mg tablet 15 mg PO DAILY #135 tab 02/14/22 Results & Data (ED) Vital Signs Vital Signs - 24 hr 03/08/22 08:02 03/08/22 09:30 03/08/22 10:03 Temperature 36.8 C Temperature Source Temporal Artery Scan Pulse Rate 86 73 Pulse Rate from SpO2 Sensor 72 77 Respiratory Rate 16 16 Blood Pressure 141/103 H 131/91 124/79 Blood Pressure Mean 115 104 94 Pulse Oximetry 97 95 97 Oxygen Delivery Method Room Air Sepsis Recent Fever Within 48 Hours No Sepsis New/Unexplained Change in Mental Status No Sepsis Action Taken by Nursing No Action Required 03/08/22 10:30 Temperature Temperature Source Pulse Rate Pulse Rate from SpO2 Sensor 76 Respiratory Rate Blood Pressure 137/93 Blood Pressure Mean 107 Pulse Oximetry 96 Oxygen Delivery Method Sepsis Recent Fever Within 48 Hours Sepsis New/Unexplained Change in Mental Status Sepsis Action Taken by Nursing Laboratory Data Result diagrams: 03/08/22 08:25 03/08/22 08:25 Lab Results 03/08/22 03/08/22 03/08/22 Range/Units 08:25 08:25 08:25 WBC 7.81 (4.8-10.8) K/uL RBC 4.63 (4.2-5.4) M/uL Hgb 13.3 (12.0-16.0) g/dL Hct 40.7 (37-47) % MCV 87.9 (80-100) fL MCH 28.7 (25-34) pg MCHC 32.7 (32-36) g/dL RDW Std Deviation 42.8 (36.4-46.3) fL RDW Coeff of Michi 13.3 (11.5-14.5) % Plt Count 338 (130-400) K/uL MPV 10.1 (7.4-10.4) fL Immature Gran % (Auto) 0.3 % Neut % (Auto) 61.4 % Lymph % (Auto) 26.8 % [place] % (Auto) 9.1 % Eos % (Auto) 1.9 % Baso % (Auto) 0.5 % Neut # (Auto) 4.80 (1.4-6.5) K/uL Lymph # (Auto) 2.09 (1.2-3.4) K/uL [place] # (Auto) 0.71 H (0.11-0.59) K/uL Eos # (Auto) 0.15 (0-0.5) K/uL Baso # (Auto) 0.04 (0-0.2) K/uL Immature Gran # (Auto) 0.02 (0.00-0.02) K/uL PT 10.3 (9.0-12.0) Seconds INR 1.0 (0.9-1.1) APTT 21.7 (21.0-31.0) Seconds PTT Ratio 0.8 Sodium 139 (136-145) mmol/L Potassium 3.9 (3.5-5.1) mmol/L Chloride 104 (98-107) mmol/L Carbon Dioxide 26 (21-32) mmol/L Anion Gap 9 (3-11) BUN 14 (6-23) mg/dl Creatinine 0.51 L (0.6-1.2) mg/dl Est Cr Clr Drug Dosing 158.2 ml/min Est GFR ( Amer) 134.6 ml/min Est GFR (Non-Af Amer) 116.1 ml/min BUN/Creatinine Ratio 27.5 H (10-20) Glucose 147 H (70-99(Fasting)) mg/dl Calcium 9.5 (8.5-10.1) mg/dl Magnesium 1.9 (1.7-2.4) mg/dl Total Bilirubin 0.4 (0.2-1.0) mg/dl AST 44 H (13-39) U/L ALT 91 H (7-52) U/L Alkaline Phosphatase 56 (34-104) U/L Troponin I High Sens 4.3 (0-14) pg/ml Total Protein 7.4 (6.0-8.3) gm/dl Albumin 4.5 (3.4-5.0) gm/dl Globulin 2.9 (2.5-4.0) gm/dl Albumin/Globulin Ratio 1.6 (0.9-2) Urine Color Urine Appearance (Clear) Urine pH (4.5-7.5) Ur Specific [place] (1.000-1.030) Urine Protein (Negative) Urine Glucose (UA) (Negative) Urine Ketones (Negative) Urine Blood (Negative) Urine Nitrite (Negative) Urine Bilirubin (Negative) Urine Urobilinogen (Negative) Ur Leukocyte Esterase (Negative) Urine WBC (Auto) (0-5) /hpf Urine RBC (Auto) (0-4) /hpf U Hyaline Cast (Auto) (0-5) /lpf U Epithel Cells (Auto) (0-5) /lpf Urine Bacteria (Auto) (Negative) SARS-CoV-2, RNA, NAAT (NEGATIVE) 03/08/22 03/08/22 Range/Units 08:41 11:29 WBC (4.8-10.8) K/uL RBC (4.2-5.4) M/uL Hgb (12.0-16.0) g/dL Hct (37-47) % MCV (80-100) fL MCH (25-34) pg MCHC (32-36) g/dL RDW Std Deviation (36.4-46.3) fL RDW Coeff of Michi (11.5-14.5) % Plt Count (130-400) K/uL MPV (7.4-10.4) fL Immature Gran % (Auto) % Neut % (Auto) % Lymph % (Auto) % [place] % (Auto) % Eos % (Auto) % Baso % (Auto) % Neut # (Auto) (1.4-6.5) K/uL Lymph # (Auto) (1.2-3.4) K/uL [place] # (Auto) (0.11-0.59) K/uL Eos # (Auto) (0-0.5) K/uL Baso # (Auto) (0-0.2) K/uL Immature Gran # (Auto) (0.00-0.02) K/uL PT (9.0-12.0) Seconds INR (0.9-1.1) APTT (21.0-31.0) Seconds PTT Ratio Sodium (136-145) mmol/L Potassium (3.5-5.1) mmol/L Chloride (98-107) mmol/L Carbon Dioxide (21-32) mmol/L Anion Gap (3-11) BUN (6-23) mg/dl Creatinine (0.6-1.2) mg/dl Est Cr Clr Drug Dosing ml/min Est GFR ( Amer) ml/min Est GFR (Non-Af Amer) ml/min BUN/Creatinine Ratio (10-20) Glucose (70-99(Fasting)) mg/dl Calcium (8.5-10.1) mg/dl Magnesium (1.7-2.4) mg/dl Total Bilirubin (0.2-1.0) mg/dl AST (13-39) U/L ALT (7-52) U/L Alkaline Phosphatase (34-104) U/L Troponin I High Sens (0-14) pg/ml Total Protein (6.0-8.3) gm/dl Albumin (3.4-5.0) gm/dl Globulin (2.5-4.0) gm/dl Albumin/Globulin Ratio (0.9-2) Urine Color Yellow Urine Appearance Clear (Clear) Urine pH 6.0 (4.5-7.5) Ur Specific [place] 1.022 (1.000-1.030) Urine Protein Negative (Negative) Urine Glucose (UA) Negative (Negative) Urine Ketones Negative (Negative) Urine Blood Trace H (Negative) Urine Nitrite Negative (Negative) Urine Bilirubin Negative (Negative) Urine Urobilinogen Negative (Negative) Ur Leukocyte Esterase Negative (Negative) Urine WBC (Auto) 1-5 (0-5) /hpf Urine RBC (Auto) 0-4 (0-4) /hpf U Hyaline Cast (Auto) 1-5 (0-5) /lpf U Epithel Cells (Auto) >30 H (0-5) /lpf Urine Bacteria (Auto) Negative (Negative) SARS-CoV-2, RNA, NAAT NEGATIVE (NEGATIVE) Administered Medications Discontinued Medications Sodium Chloride (Nss 1000ml) 1,000 mls @ 999 mls/hr IV .Q1H1M ONE Stop: 03/08/22 09:32 Last Infusion: 03/08/22 10:04 Dose: 0 mls/hr Documented by: [id number] Admin: 03/08/22 08:56 Dose: 999 mls/hr Documented by: [id number] Ioversol (Optiray 320 125ml) 120 ml IV ONCE ONE Stop: 03/08/22 09:54 Last Admin: 03/08/22 09:54 Dose: 120 ml Documented by: [id number] Imaging Data Radiologist's Impression: Chest X-Ray 03/08/22 08:28 XR chest 1V portable CLINICAL HISTORY: Stroke Like Symptoms. Evaluate cardiopulmonary status COMPARISON STUDY: 10/16/2017 TECHNIQUE: 1 view of the chest FINDINGS: Single frontal view of the chest demonstrates the cardiomediastinal silhouette to be within normal limits. There is a decreased inspiratory effort with elevation of the hemidiaphragms and crowding of the bronchovascular markings at the lung bases and centrally. The lungs are clear of alveolar opacities. There is no evidence for pleural effusion. There is no evidence for vascular congestion. There is no acute osseous pathology. IMPRESSION: 1. There is a decreased inspiratory effort with otherwise no acute chest disease. ACT 112: Negative or not required by law. Electronically signed by: Jackson Escalante M.D. 03/08/2022 8:[address] 03/08/22 08:28 CT head/brain wo con, CT angio neck with con, CT angio head w con CLINICAL HISTORY: 46 years-old Female with Stroke Like Symptoms. Acute strokelike symptoms with left upper extremity weakness TECHNIQUE: Multiple axial CT images of the head were obtained without contrast. CTA head and neck was also obtained following the intravenous administration of 120 mL Optiray 320. All measurements were obtained according to NASCET criteria. 3-D coronal and sagittal MIPS were submitted. A dose lowering technique was utilized adhering to the principles of ALARA. CT DOSE: 1168.64 mGy.cm COMPARISON: None. FINDINGS: CT HEAD: No acute intracranial hemorrhage, midline shift, intracranial mass, hydroceph alus, territorial ischemia or abnormal extra-axial collection. The calvarium is intact. The paranasal sinuses, mastoid air cells, and middle ear cavities are clear. CTA HEAD AND NECK: The imaged opacified pulmonary artery appears normal. Patency of the innominate and imaged subclavian arteries. The common carotid arteries are widely patent. There is minimal atherosclerosis of the right carotid bulb. The bilateral internal carotid arteries are widely patent. The middle and anterior cerebral arteries appear normal. Codominant and patent vertebral arteries. The basilar and posterior cerebral arteries are patent. origin of the right posterior cerebral artery. The cerebral venous sinuses are patent. There is no abnormal intracranial enhancement. The lung apices are clear. Heterogeneous thyroid with subcentimeter hypodense nodules. There are several prominent and borderline enlarged cervical chain lymph nodes measuring up to 9-10 mm which are favored to be reactive. No acute cervical spine fracture identified. 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 IMPRESSION: 1. No acute intracranial abnormality. 2. Unremarkable CTA of the head and neck. ACT 112: Negative or not required by law. The above report was generated using voice recognition software. It may contain grammatical, syntax or spelling errors. Electronically signed by: Everett Gary M.D. 03/08/2022 10:07 AM Head CTA 03/08/22 08:28 CT head/brain wo con, CT angio neck with con, CT angio head w con CLINICAL HISTORY: 46 years-old Female with Stroke Like Symptoms. Acute strokelike symptoms with left upper extremity weakness TECHNIQUE: Multiple axial CT images of the head were obtained without contrast. CTA head and neck was also obtained following the intravenous administration of 120 mL Optiray 320. All measurements were obtained according to NASCET criteria. 3-D coronal and sagittal MIPS were submitted. A dose lowering technique was utilized adhering to the principles of ALARA. CT DOSE: 1168.64 mGy.cm COMPARISON: None. FINDINGS: CT HEAD: No acute intracranial hemorrhage, midline shift, intracranial mass, hydrocephalus, territorial ischemia or abnormal extra-axial collection. The calvarium is intact. The paranasal sinuses, mastoid air cells, and middle ear cavities are clear. CTA HEAD AND NECK: The imaged opacified pulmonary artery appears normal. Patency of the innominate and imaged subclavian arteries. The common carotid arteries are widely patent. There is minimal atherosclerosis of the right carotid bulb. The bilateral internal carotid arteries are widely patent. The middle and anterior cerebral arteries appear normal. Codominant and patent vertebral arteries. The basilar and posterior cerebral arteries are patent. origin of the right posterior cerebral artery. The cerebral venous sinuses are patent. There is no abnormal intracranial enhancement. The lung apices are clear. Heterogeneous thyroid with subcentimeter hypodense nodules. There are several prominent and borderline enlarged cervical chain lymph nodes measuring up to 9-10 mm which are favored to be reactive. No acute cervical spine fracture identified. Developmental incomplete bony fusion involv es the posterior arch of C1. IMPRESSION: 1. No acute intracranial abnormality. 2. Unremarkable CTA of the head and neck. ACT 112: Negative or not required by law. The above report was generated using voice recognition software. It may contain grammatical, syntax or spelling errors. Electronically signed by: Everett Gary M.D. 03/08/2022 10:07 AM Neck CTA 03/08/22 08:28 CT head/brain wo con, CT angio neck with con, CT angio head w con CLINICAL HISTORY: 46 years-old Female with Stroke Like Symptoms. Acute strokeli ke symptoms with left upper extremity weakness TECHNIQUE: Multiple axial CT images of the head were obtained without contrast. CTA head and neck was also obtained following the intravenous administration of 120 mL Optiray 320. All measurements were obtained according to NASCET criteria. 3-D coronal and sagittal MIPS were submitted. A dose lowering technique was utilized adhering to the principles of ALARA. CT DOSE: 1168.64 mGy.cm COMPARISON: None. FINDINGS: CT HEAD: No acute intracranial hemorrhage, midline shift, intracranial mass, hydrocephalus, territorial ischemia or abnormal extra-axial collection. The calvarium is intact. The paranasal sinuses, mastoid air cells, and middle ear cavities are clear. CTA HEAD AND NECK: The imaged opacified pulmonary artery appears normal. Patency of the innominate and imaged subclavian arteries. The common carotid arteries are widely patent. There is minimal atherosclerosis of the right carotid bulb. The bilateral internal carotid arteries are widely patent. The middle and anterior cerebral arteries appear normal. Codominant and patent vertebral arteries. The basilar and posterior cerebral arteries are patent. origin of the right posterior cerebral artery. The cerebral venous sinuses are patent. There is no abnormal intracranial enhancement. The lung apices are clear. Heterogeneous thyroid with subcentimeter hypodense nodules. There are several prominent and borderline enlarged cervical chain lymph nodes measuring up to 9-10 mm which are favored to be reactive. No acute cervical spine fracture identified. 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 IMPRESSION: 1. No acute intracranial abnormality. 2. Unremarkable CTA of the head and neck. ACT 112: Negative or not required by law. The above report was generated using voice recognition software. It may contain grammatical, syntax or spelling errors. Electronically signed by: Everett Gary M.D. 03/08/2022 10:07 AM Discharge Plan Visit Data Chief Complaint: Referred by Doctor Stated Complaint: headache,L arm difficulty,pcp thinks stroke ED Provider: Randolph Rey Discharge Problem: Arm paresthesia, left, Arm weakness, Confusion Forms Stand Alone Forms: My [facility] Prescriptions Prescriptions: No Action albuterol sulfate [ProAir HFA] 90 mcg/actuation HFA aerosol inhaler 1 - 2 puffs INH Q6H PRN (Reason: shortness of breath or wheezing) Qty: 18 RF: 3 atorvastatin 20 mg tablet 20 mg PO DAILY Qty: 90 RF: 3 pantoprazole 40 mg tablet,delayed release (DR/EC) 40 mg PO DAILY Qty: 90 RF: 3 lisinopril 10 mg tablet 10 mg PO DAILY Qty: 90 RF: 3 (DME) blood-glucose meter Kit See Rx Instructions .Route Qty: 1 RF: 0 (DME) blood sugar diagnostic Strip See Rx Instructions .ROUTE .MEDSUPPLY Qty: 90 RF: 3 (DME) lancets [OneTouch Delica Lancets] 33 gauge misc See Rx Instructions .ROUTE .MEDSUPPLY Qty: 100 RF: 3 lorazepam 0.5 mg tablet 0.5 mg PO Q12H PRN (Reason: anxiety) Qty: 30 RF: 0 escitalopram oxalate 10 mg tablet 15 mg PO DAILY Qty: 135 RF: 3 metformin 500 mg tablet extended release 24 hr See Rx Instructions .ROUTE .COMPLEX Qty: 360 RF: 3 Trulicity 3 mg/0.5 mL pen injector 3 mg subcut .weekly Qty: 2 RF: 3 cyanocobalamin (vitamin B-12) 1,000 mcg capsule 1,000 mcg PO DAILY RF: 0 Referrals Referrals: Man Nuno MD [Primary Care Provider] -
[2022-03-08 08:45] LABS: Basophils # (auto) 0.04 K/uL (0-0.2); Basophils % (auto) 0.5 %; Eosinophils # (auto) 0.15 K/uL (0-0.5); Eosinophils % (auto) 1.9 %; Hematocrit (blood only) 40.7 % (37-47); Hemoglobin 13.3 g/dL (12.0-16.0); Immature Granulocytes # (auto) 0.02 K/uL (0.00-0.02); Immature Granulocytes % (auto) 0.3 %; Lymphocytes # (auto) 2.09 K/uL (1.2-3.4); Lymphocytes % (auto) 26.8 %; Mean Corpuscular Hemoglobin 28.7 pg (25-34); Mean Corpuscular Hgb Conc 32.7 g/dL (32-36); Mean Corpuscular Volume 87.9 fL (80-100); Mean Platelet Volume 10.1 fL (7.4-10.4); Monocytes # (auto) 0.71 K/uL (0.11-0.59); Monocytes % (auto) 9.1 %; Neutrophils % (auto) 61.4 %; Platelet Count 338 K/uL (130-400); RDW Coefficient of Variation 13.3 % (11.5-14.5); RDW Standard Deviation 42.8 fL (36.4-46.3); Red Blood Count 4.63 M/uL (4.2-5.4); White Blood Count 7.81 K/uL (4.8-10.8)
--- NOTE | 2022-03-08 08:46 | XRay Report ---
XR chest 1V portable CLINICAL HISTORY: Stroke Like Symptoms. Evaluate cardiopulmonary status COMPARISON STUDY: 10/16/2017 TECHNIQUE: 1 view of the chest FINDINGS: Single frontal view of the chest demonstrates the cardiomediastinal silhouette to be within normal li mits. There is a decreased inspiratory effort with elevation of the hemidiaphragms and crowding of th e bronchovascular markings at the lung bases and centrally. The lungs are clear of alveolar opacities . There is no evidence for pleural effusion. There is no evidence for vascular congestion. There is n o acute osseous pathology. IMPRESSION: 1. There is a decreased inspiratory effort with otherwise no acute chest disease. ACT 112: Negative or not required by law. Electronically signed by: Jackson Escalante M.D. 03/08/2022 8:44 AM
[2022-03-08 08:53] LABS: Partial Thromboplastin Ratio 0.8; Partial Thromboplastin Time 21.7 Seconds (21.0-31.0); Prothrombin Time 10.3 Seconds (9.0-12.0)
[2022-03-08 09:13] LABS: Albumin Globulin Ratio 1.6 (0.9-2); Albumin Level 4.5 gm/dl (3.4-5.0); BUN Creatinine Ratio 27.5 (10-20); Bilirubin,Total 0.4 mg/dl (0.2-1.0); Calcium 9.5 mg/dl (8.5-10.1); Creatinine Clr Calc Pharmacy 158.2 ml/min; Est GFR (African American) 134.6 ml/min; Est GFR (Non-African American) 116.1 ml/min; Globulin 2.9 gm/dl (2.5-4.0); Magnesium 1.9 mg/dl (1.7-2.4); Potassium 3.9 mmol/L (3.5-5.1); Total Protein 7.4 gm/dl (6.0-8.3)
[2022-03-08 09:14] LABS: Troponin I High Sensitivity 4.3 pg/ml (0-14)
[2022-03-08 09:33] LABS: Appearance Urine Clear (Clear); Bacteria Urine Automated Negative (Negative); Bilirubin Urine Negative (Negative); Blood Urine Trace (Negative); Color Urine Yellow; Epithelial Cell Urine Auto >30 /lpf (0-5); Glucose Urine UA Negative (Negative); Ketones Urine Negative (Negative); Leukocyte Esterase Urine Negative (Negative); Nitrite Urine Negative (Negative); Protein Urine Negative (Negative); RBC Urine Automated 0-4 /hpf (0-4); Specific Gravity Urine 1.022 (1.000-1.030); Urobilinogen Urine Negative (Negative)
[2022-03-08] MEDS ORDERED: OPTIRAY 320 125ml IV ONE (09:53)
--- NOTE | 2022-03-08 10:09 | CT Scan Report ---
CT head/brain wo con, CT angio neck with con, CT angio head w con CLINICAL HISTORY: 46 years-old Female with Stroke Like Symptoms. Acute strokelike symptoms with left upper extremity weakness TECHNIQUE: Multiple axial CT images of the head were obtained without contrast. CTA head and neck was also obtained following the intravenous administration of 120 mL Optiray 320. All measurements were obtained according to NASCET criteria. 3-D coronal and sagittal MIPS were submitted. A dose lowering technique was utilized adhering to the principles of ALARA. CT DOSE: 1168.64 mGy.cm COMPARISON: None. FINDINGS: CT HEAD: No acute intracranial hemorrhage, midline shift, intracranial mass, hydrocephalus, territorial ischem ia or abnormal extra-axial collection. The calvarium is intact. The paranasal sinuses, mastoid air cells, and middle ear cavities are clear . CTA HEAD AND NECK: The imaged opacified pulmonary artery appears normal. Patency of the innominate and imaged subclavian arteries. The common carotid arteries are widely patent. There is minimal atherosclerosis of the rig ht carotid bulb. The bilateral internal carotid arteries are widely patent. The middle and anterior c erebral arteries appear normal. Codominant and patent vertebral arteries. The basilar and posterior c erebral arteries are patent. origin of the right posterior cerebral artery. The cerebral venous sinuses are patent. There is no abnormal intracranial enhancement. The lung apices are clear. Heterogeneous thyroid with subcentimeter hypodense nodules. There are shauna ral prominent and borderline enlarged cervical chain lymph nodes measuring up to 9-10 mm which are fa vored to be reactive. No acute cervical spine fracture identified. Developmental incomplete bony fusi on involves the posterior arch of C1. IMPRESSION: 1. No acute intracranial abnormality. 2. Unremarkable CTA of the head and neck. ACT 112: Negative or not required by law. The above report was generated using voice recognition software. It may contain grammatical, syntax o r spelling errors. Electronically signed by: Everett Gary M.D. 03/08/2022 10:07 AM
--- NOTE | 2022-03-08 11:48 | History & Physical Report ---
Date of Service March 08, 2022 Assessment & Plan (1) Multiple sclerosis: Plan: No prior diagnosis of this but symptoms concerning symptoms for flare although examination today objectively normal MRI brain and cervical spine MS protocol - depending on results will consider lumbar puncture Consult neurology (2) IBS (irritable bowel syndrome): Plan: Monitor for diarrhea (3) Situational anxiety: Plan: Continue Lexapro, lorazepam PRN (4) Transaminitis: Plan: Mildly elevated LFTs. Prior diagnosis of hepatic steatosis. Monitor with AM labs but appears to be improved. INR and platelets normal. (5) HTN (hypertension): Plan: Continue home dosing lisinopril (6) Type 2 diabetes mellitus: Plan: HbA1C 8.8 [11/2021]. Currently on metformin and Trulicty T2DM diet and Novolog: Goal BSG Range: Low 110 mg/dL, High 140 mg/dL Correction Factor: 45 mg/dL/unit No carb coverage BSGs ACHS if eating, q6h if npo Add Lantus if needing frequent insulin correction (7) Asthma: Plan: Albuterol PRN No acute exacerbation Plan: VTE Prophylaxis - low risk Diet - regular Disposition - observation status to med/tele Admission and Anticipated Discharge Date Admission Date: March 08, 2022 History of Present Illness Chief Complaint: Multiple neurological complaints Primary Care Provider: Man Nuno MD Tina Richards is a 46 year old right handed female female who presents to the ER fatigue, diplopia, right eye deviation, bilateral extremity tingling and left greater than right upper extremity weakness. Initial symptoms started 2 months ago. She has progressively noticed fatigue, tingling sensation down both arms and fingers more so than her legs, more forgetful and inability to open jars with both hands. Diplopia noticed intermittently but becoming more frequent, episodes last for 1 minute, ongoing for the last month. For the last 2 weeks she has noticed her right eye appears to deviate laterally, a student of hers noticed this happening 2 days ago. Today she is noticing blurring of her left eye vision. She has also noticed shooting pains in her head and neck, no worse on neck flexion, last for seconds but can come on at any time. Main reason she came to the ER today however is left upper extremity weakness, distal > proximal. No worse at the end of the day than the start. She is otherwise well without fever, chills, respiratory or urinary symptoms. She has a diagnosis of IBS and has ongoing problems with diarrhea and constipation but nothing new. Last "head cold" was one month ago. Significant family history of multiple sclerosis of her Grandfather on her mothers side. In the ER stroke workup with CT head and CT angiogram head and neck were negative. She was referred to medicine for blurry vision and left sided weakness. Allergies Allergy/AdvReac Type Severity Reaction Status Date / Time cat dander Allergy Unknown CAT AND Verified 03/08/22 08:56 DOG DANDER-ITCHY SNEEZING metaxalone Allergy Unknown UNKNOWN Verified 03/08/22 08:56 pollen extracts Allergy Unknown SNEEZING,ITCHY Verified 03/08/22 08:56 EYES amoxicillin [From Augmentin] Allergy swelling Verified 03/08/22 08:56 clavulanic acid Allergy swelling Verified 03/08/22 08:56 [From Augmentin] Home Medications Medication Instructions Recorded Confirmed Type cyanocobalamin (vitamin B-12) 1,000 mcg PO DAILY 08/14/19 03/08/22 History 1,000 mcg capsule albuterol sulfate 90 mcg/actuation 1 - 2 puffs INH Q6H PRN #18 gm 01/12/20 03/08/22 Rx aerosol inhaler (ProAir HFA) atorvastatin 20 mg tablet 20 mg PO DAILY #90 tab 12/20/20 03/08/22 Rx pantoprazole 40 mg tablet,delayed 40 mg PO DAILY #90 tab 04/11/21 03/08/22 Rx release lisinopril 10 mg tablet 10 mg PO DAILY #90 tab 11/25/21 03/08/22 Rx blood sugar diagnostic #90 ea 12/08/21 03/08/22 Rx blood-glucose meter #1 ea 12/08/21 03/08/22 Rx lancets 33 gauge (OneTouch Delica #100 ea 12/08/21 03/08/22 Rx Lancets) dulaglutide 3 mg/0.5 mL 3 mg SUBCUT .weekly #2 ml 12/15/21 03/08/22 [facility] metformin 500 mg tablet,extended See Rx Instructions .ROUTE 12/15/21 03/08/22 Rx release 24 hr .COMPLEX #360 tab lorazepam 0.5 mg tablet 0.5 mg PO Q12H PRN #30 tab 12/28/21 03/08/22 Rx escitalopram oxalate 10 mg tablet 15 mg PO DAILY #135 tab 02/14/22 03/08/22 Rx Past Med/Surg History Medical History Chest pain Cholelithiasis Colitis Head pain Hepatic steatosis HTN (hypertension) Hyperlipidemia LDL goal <100 Hypertriglyceridemia, essential Memory loss Situational anxiety Transaminitis Type 2 diabetes mellitus Visual changes Surgical History History of breast reconstruction History of section History of cholecystectomy History of tooth extraction Family History Mother Cancer Grandmother Cardiac disorder Diabetes Uncle Diabetes Other Hypertension Denies family history of Ovarian cancer Prostate cancer Heart disease Myocardial infarction Breast cancer Lung cancer Colorectal cancer Social History Smoking Status: Never smoker Hx Alcohol Use: Yes Hx Substance Use: No Preferred Language: Arabic Communication Ability: Effective Visual Impairment: No Limitations Hearing Ability: Normal Research Environmental Scientist Required: No Beliefs That Will Affect Care: None marital status: Current Living Situation: Spouse current occupational status: employed current occupation: [employer] school Other Information That Helps Us Care for You: No Feels Safe at Home: Yes Safety Concerns: Feels Safe At This Time Childhood Exposure to Second-Hand Smoke: No caffeine: Yes Dental Care, Regularly: Yes Physical Activity Frequency: 3-4 Times per Week Seatbelt Use: always Sunscreen Use: Yes Review of Systems Review of Systems: All systems reviewed & are unremarkable except as noted in HPI & below Physical Exam Constitutional: WD/WN, vitals as above Eyes: PERRL, conjunctivae normal, anicteric sclerae ENMT: external ear and nose normal, oropharynx normal Neck: trachea midline, no thyromegaly Respiratory: normal respiratory effort, lungs clear to auscultation Cardiovascular: RRR, no murmur, no edema Gastrointestinal (Abdomen): Inspection/Auscultation: normal bowel sounds Percussion/Palpation: abdomen soft; abdomen nontender, no guarding and abdomen not rigid Musculoskeletal: no cyanosis or clubbing, extremities motor strength 5/5 Skin: no rashes, warm and dry Neurologic: moves all extremities and awake; no focal motor deficits and not confused Speech / Cognition: normal speech Motor/Sensory: no pronator drift Cranial Nerves: PERRL, EOM intact bilaterally (no diplopia), normal facial strength, tongue midline, able to rotate head bilaterally, able to elevate shoulders bilaterally, no nystagmus and symmetric palate elevation Coordination: normal [id number] test and normal [id number] test Psychiatric: A+Ox3, euthymic affect Results & Data Results & Data ([facility]) Vital Signs (Past 12 Hours) Vital Signs Temp Pulse Resp BP Pulse Ox 03/08/22 10:30 137/93 96 03/08/22 10:03 124/79 97 03/08/22 09:30 73 16 131/91 95 03/08/22 08:02 36.8 C 86 16 141/103 H 97 Laboratory Results Abnormal lab results 03/08/22 03/08/22 03/08/22 Range/Units 08:25 08:25 08:41 [place] # (Auto) 0.71 H (0.11-0.59) K/uL Creatinine 0.51 L (0.6-1.2) mg/dl BUN/Creatinine Ratio 27.5 H (10-20) Glucose 147 H (70-99(Fasting)) mg/dl POC Glucose (70-99) mg/dl AST 44 H (13-39) U/L ALT 91 H (7-52) U/L Urine Blood Trace H (Negative) U Epithel Cells (Auto) >30 H (0-5) /lpf 03/08/22 03/08/22 Range/Units 16:25 20:08 [place] # (Auto) (0.11-0.59) K/uL Creatinine (0.6-1.2) mg/dl BUN/Creatinine Ratio (10-20) Glucose (70-99(Fasting)) mg/dl POC Glucose 106 H 123 H (70-99) mg/dl AST (13-39) U/L ALT (7-52) U/L Urine Blood (Negative) U Epithel Cells (Auto) (0-5) /lpf Diagnostic Findings XR chest 1V portable CLINICAL HISTORY: Stroke Like Symptoms. Evaluate cardiopulmonary status COMPARISON STUDY: 10/16/2017 TECHNIQUE: 1 view of the chest FINDINGS: Single frontal view of the chest demonstrates the cardiomediastinal silhouette to be within normal limits. There is a decreased inspiratory effort with elevation of the hemidiaphragms and crowding of the bronchovascular markings at the lung bases and centrally. The lungs are clear of alveolar opacities. There is no evidence for pleural effusion. There is no evidence for vascular congestion. There is no acute osseous pathology. IMPRESSION: 1. There is a decreased inspiratory effort with otherwise no acute chest disease. CT head/brain wo con, CT angio neck with con, CT angio head w con CLINICAL HISTORY: 46 years-old Female with Stroke Like Symptoms. Acute strokelike symptoms with left upper extremity weakness TECHNIQUE: Multiple axial CT images of the head were obtained without contrast. CTA head and neck was also obtained following the intravenous administration of 120 mL Optiray 320. All measurements were obtained according to NASCET criteria. 3-D coronal and sagittal MIPS were submitted. A dose lowering technique was utilized adhering to the principles of ALARA. CT DOSE: 1168.64 mGy.cm COMPARISON: None. FINDINGS: CT HEAD: No acute intracranial hemorrhage, midline shift, intracranial mass, hydrocephalus, territorial ischemia or abnormal extra-axial collection. The calvarium is intact. The paranasal sinuses, mastoid air cells, and middle ear cavities are clear. CTA HEAD AND NECK: The imaged opacified pulmonary artery appears normal. Patency of the innominate and imaged subclavian arteries. The common carotid arteries are widely patent. There is minimal atherosclerosis of the right carotid bulb. The bilateral internal carotid arteries are widely patent. The middle and anterior cerebral arteries appear normal. Codominant and patent vertebral arteries. The basilar and posterior cerebral arteries are patent. origin of the right posterior cerebral artery. The cerebral venous sinuses are patent. There is no abnormal intracranial enhancement. The lung apices are clear. Heterogeneous thyroid with subcentimeter hypodense nodules. There are several prominent and borderline enlarged cervical chain lymph nodes measuring up to 9-10 mm which are favored to be reactive. No acute cervical spine fracture identified. 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 IMPRESSION: 1. No acute intracranial abnormality. 2. Unremarkable CTA of the head and neck. Medications Administered ER Medications Given: NSS 1L bolus ECG Indication: other Rate (beats per minute): 79 Rhythm: normal sinus Findings: no acute ischemic change Comparison ECG Date: from (March 22, 2017) Change: no significant change Code Status & VTE Plan Code Status Full VTE Prophylaxis Plan VTE Prophylaxis will be ordered: No Reason for no VTE drug order: Treatment not indicated Reason for no VTE mechanical prophylaxis: Treatment not indicated PG Care Time/CCT Total # of Minutes Spent Total Time Spent with Patient: Total time spent is greater than 50% in coordination of care (as documented) at patient's floor/unit and/or counseling patient: Coding Level of Care Code INT OBSERVATION CARE 70M LVL 3 Diagnoses Multiple sclerosis G35 Situational anxiety F41.8 Transaminitis R74.0 HTN (hypertension) I10 Type 2 diabetes mellitus E11.9 IBS (irritable bowel syndrome) K58.9 Asthma J45.909
[2022-03-08] MEDS ORDERED: GADOBUTROL 65ML VIAL IV ONE (14:20)
[2022-03-08] MEDS ORDERED: ACETAMINOPHEN 325 MG TAB PO PRN (14:44)
[2022-03-08] MEDS ORDERED: GLUCOSE 10 TABS/TUBE PO PRN (14:47)
[2022-03-08] MEDS ORDERED: GLUCAGON FOR INJ 1 MG VIAL SQ PRN (14:47)
[2022-03-08] MEDS ORDERED: GLUCOSE 40% GEL 15 GM TUBE PO PRN (14:47)
[2022-03-08] MEDS ORDERED: CARBOHYDRATES FOR HYPOGLYCEMIA PO PRN (14:47)
[2022-03-08] MEDS ORDERED: DEXTROSE 50% 50 ML SYRINGE IV PRN (14:47)
--- NOTE | 2022-03-08 14:52 | Magnetic Resonance Report ---
MR brain MS wo/w con CLINICAL HISTORY: LUE weakness, diplopia. Tingling in both arms COMPARISON STUDY: CTA brain from 03/08/2022 TECHNIQUE: Multiplanar multisequence images of the brain were performed before and after Gadavist, 9 .5 mL of IV contrast. Diffusion weighted imaging and ADC mapping was also performed. FINDINGS: Extra-axial space: There is no evidence for a subdural hematoma, There are no extra-axial fluid fuentes ections. Ventricles and cisterns: The ventricles are normal in size and configuration. There is no evidence f or midline shift or mass effect. Parenchyma: On noncontrast images, there is no evidence for an acute hemorrhage or infarct. No acute diffusion abnormalities are noted on diffusion weighted imaging or ADC mapping. There is normal castañeda -white differentiation. The sulci and gyri appear normal without effacement. The midline structures a re unremarkable. The posterior fossa structures appear normal. On postcontrast images, there is no evidence for enhancing mass lesion. There are no enhancing plaque s present. Osseous structures: The paranasal sinuses are well aerated. There is minimal fluid seen within the p etrous air cells bilaterally, right greater than left. The mastoid air cells are well aerated. Soft tissues: No focal soft tissue abnormalities are identified. IMPRESSION: 1. No acute intracranial abnormalities. 2. No enhancing plaques or MR findings suspicious for multiple sclerosis. ACT 112: Negative or not required by law. Electronically signed by: Jackson Escalante M.D. 03/08/2022 2:51 PM
--- NOTE | 2022-03-08 14:58 | Electrocardiogram Report ---
Test Reason : Blood Pressure : / mmHG Vent. Rate : 079 BPM Atrial Rate : 079 BPM P-R Int : 140 ms QRS Dur : 102 ms QT Int : 396 ms P-R-T Axes : -09 -14 007 degrees QTc Int : 454 ms Normal sinus rhythm Minimal voltage criteria for LVH, may be normal variant Borderline ECG When compared with ECG of 22-MAR-2017 10:19, No significant change was found Confirmed by Jaiden Rob ([id number]) on 03/08/2022 2:58:18 PM Referred By: Man Nuno Confirmed By:Alvino Rob
--- NOTE | 2022-03-08 15:11 | Magnetic Resonance Report ---
MR cervical spine wo/w con HISTORY: 46 years-old Female LUE weakness, diplopia ?MS acute left upper extremity weakness with bianac ble vision COMPARISON: Brain MRI 03/08/2022 TECHNIQUE: Multiplanar multisequence MRI of the brain was obtained both with and without the use of 9 .5 cc Gadavist FINDINGS: Marshmallow Runner localizer images demonstrate no gross extraspinal abnormality. There is developmental partial b stephany fusion of the C2-C3 vertebral bodies. Imaged posterior fossa structures appear unremarkable. Sign al within the cervical and imaged thoracic spinal cord appears normal. There is no acute fracture, villalba bluxation, significant bone marrow or prevertebral edema. No endplate erosions or marrow destruction. No abnormal enhancement or epidural fluid collections. T5 vertebral body hemangioma. 4 mm T2 hyperin tense focus of the left thyroid lobe. The study is mildly motion degraded. C2-C3: Developmental bony fusion. C3-C4: Disc desiccation with uncovertebral hypertrophy and small posterior annular disc bulge. Mild f acet arthrosis. The central canal and left neural foramen are patent. There is mild right neural fora binta narrowing. C4-C5: Uncovertebral hypertrophy with tiny posterior annular disc bulge and mild facet arthrosis. The central canal and neural foramina appear patent. C5-C6: Mild facet arthrosis. No central canal or neural foraminal narrowing. C6-C7: Mild intervertebral disc space narrowing with uncovertebral hypertrophy and tiny posterior hunter ular disc bulge with mild facet arthrosis. Flattening of the ventral thecal sac without significant c entral canal narrowing. The neural foramina also appear patent. C7-T1: Mild facet arthrosis. No central canal or neural foraminal narrowing. IMPRESSION: 1. Normal signal of the cervical spinal cord. 2. No abnormal enhancement. 3. Mild degenerative changes as above. No significant central canal or neural foraminal narrowing. ACT 112: Negative or not required by law. The above report was generated using voice recognition software. It may contain grammatical, syntax o r spelling errors. Electronically signed by: Everett Gary M.D. 03/08/2022 3:08 PM
[2022-03-08] MEDS: LORazepam 0.5 MG TAB PO PRN (15:21)
[2022-03-08] MEDS: INSULIN ASPART PER UNIT SC SCH ×2 (17:48→20:28)
[2022-03-09 08:26] LABS: Basophils # (auto) 0.04 K/uL (0-0.2); Basophils % (auto) 0.5 %; Eosinophils # (auto) 0.21 K/uL (0-0.5); Eosinophils % (auto) 2.8 %; Hematocrit (blood only) 39.3 % (37-47); Hemoglobin 13.1 g/dL (12.0-16.0); Immature Granulocytes # (auto) 0.01 K/uL (0.00-0.02); Immature Granulocytes % (auto) 0.1 %; Lymphocytes # (auto) 2.21 K/uL (1.2-3.4); Lymphocytes % (auto) 29.5 %; Mean Corpuscular Hemoglobin 29.5 pg (25-34); Mean Corpuscular Hgb Conc 33.3 g/dL (32-36); Mean Corpuscular Volume 88.5 fL (80-100); Mean Platelet Volume 10.1 fL (7.4-10.4); Monocytes # (auto) 0.47 K/uL (0.11-0.59); Monocytes % (auto) 6.3 %; Neutrophils # (auto) 4.55 K/uL (1.4-6.5); Neutrophils % (auto) 60.8 %; Platelet Count 334 K/uL (130-400); RDW Coefficient of Variation 13.2 % (11.5-14.5); RDW Standard Deviation 43.1 fL (36.4-46.3); Red Blood Count 4.44 M/uL (4.2-5.4); White Blood Count 7.49 K/uL (4.8-10.8)
[2022-03-09] MEDS: LORazepam 0.5 MG TAB PO PRN (08:32)
[2022-03-09] MEDS: INSULIN ASPART PER UNIT SC SCH ×2 (08:33→12:45)
[2022-03-09 08:50] LABS: Anion Gap 9 (3-11); BUN Creatinine Ratio 21.4 (10-20); Blood Urea Nitrogen 9 mg/dl (6-23); C Reactive Protein < 0.50 mg/dl (0-0.5); Calcium 9.4 mg/dl (8.5-10.1); Carbon Dioxide 26 mmol/L (21-32); Chloride 103 mmol/L (98-107); Creatinine Clr Calc Pharmacy 190.7 ml/min; Est GFR (African American) 143.5 ml/min; Est GFR (Non-African American) 123.8 ml/min; Glucose 135 mg/dl (70-99(Fasting)); Potassium 3.6 mmol/L (3.5-5.1); Sodium 138 mmol/L (136-145)
[2022-03-09] MEDS ORDERED: CYANOCOBALAMIN (B-12) 500 MCG TABLET PO SCH (09:00)
[2022-03-09] MEDS ORDERED: lisinopril 10 MG TAB PO SCH (09:00)
[2022-03-09] MEDS ORDERED: PANTOprazole 40 MG TAB PO SCH (09:00)
[2022-03-09] MEDS ORDERED: ATORVASTATIN 20 MG TAB PO SCH (09:00)
[2022-03-09] MEDS ORDERED: ESCITALOPRAM OXALATE 10 MG TAB PO SCH (09:00)
[2022-03-09 09:20] LABS: Lyme Ab IgG w/WB Rflx Negative (Negative)
--- NOTE | 2022-03-09 09:47 | Neurology Consultation ---
Date of Consultation March 09, 2022 Assessment & Plan (1) Paresthesia: (2) Blurry vision: (3) Headache: 46-year-old female presenting with a several week history of low-grade right-sided headache, intermittent blurry vision, double vision, and paresthesias of the arm. Reported a nonspecific upper respiratory infection occurring 2 to 3 weeks ago, no recent vaccinations. Has a history of poorly controlled diabetes mellitus, hypertriglyceridemia, and hepatic steatosis. Remote history of migraine although current headache seems different. She has an intact neurological examination at this time. No evidence of afferent pupillary defect, internuclear ophthalmoplegia, abnormality of ocular motility, or focal motor or sensory deficit of any limb. Reported symptoms are varied and intermittent, occurring over the past few weeks after nonspecific upper respiratory infection. Her clinical presentation is not classic or specific for multiple sclerosis. She does not present with optic neuritis, internuclear ophthalmoplegia or other brainstem syndrome, or transverse myelitis. I do note that she has minimal nonspecific scattered white matter T2/FLAIR hyperintensities on brain MRI. These abnormalities are likely chronic and could very well relate to microvascular ischemic disease given her medical comorbidities. No evidence of spinal cord lesions. Multiple sclerosis may not be completely excluded, however. TIA could also be considered. I agree with lumbar puncture/CSF analysis including MS panel which has been ordered under fluoroscopy. I know she has normal inflammatory markers. Follow- up with MARLEY screen. Lyme IgG antibody screening negative, follow-up with IgM w hen available. Would also follow-up with most recent hemoglobin A1c result when available. I will also order acetylcholine receptor antibodies although my clinical suspicion for myasthenia gravis is low given her constellation of symptoms. Would also recommend an echocardiogram and consider starting daily low-dose aspirin after completion of lumbar puncture. 30-day mobile cardiac outpatient telemetry. History of Present Illness Reason for Consultation: concern for MS Requesting Physician: Sandro Chaudhary MD Attending Physician: Waldemar Xavier MD History of Present Illness The patient is a 46-year-old female who presented to the emergency department yesterday with a variety of complaints including intermittent paresthesias of either arm, intermittent blurry vision and double vision, low-grade persistent right-sided headache, and mild brain fog or memory loss. Symptoms have been present for the past week and have been intermittent other than the right-sided head pain which has been more persistent. She denies eye pain or vision loss. She had an episode of transient left arm weakness. No ptosis, no dysphagia or dysarthria. No particular triggering factors for any of the above symptomatology. She does remark that she had a nonspecific upper respiratory infection about 2 to 3 weeks ago. No recent vaccinations. She does not recall having similar episodes of neurologic symptoms in the past. No known history of stroke, TIA, or seizure disorder. She does endorse a family history of MS in one of her grandparents. Other than low-grade right-sided headache, she is currently asymptomatic. She does relay a remote history of migraine although her current headache feels different. Past medical history is notable for poorly controlled diabetes mellitus, hypertension, hypertriglyceridemia, and hepatic steatosis. Allergies Allergy/AdvReac Type Severity Reaction Status Date / Time cat dander Allergy Unknown CAT AND Verified 03/08/22 08:56 DOG DANDER-ITCHY SNEEZING metaxalone Allergy Unknown UNKNOWN Verified 03/08/22 08:56 pollen extracts Allergy Unknown SNEEZING,ITCHY Verified 03/08/22 08:56 EYES amoxicillin [From Augmentin] Allergy swelling Verified 03/08/22 08:56 clavulanic acid Allergy swelling Verified 03/08/22 08:56 [From Augmentin] Home Medications Medication Instructions Recorded Confirmed Type cyanocobalamin (vitamin B-12) 1,000 mcg PO DAILY 08/14/19 03/08/22 History 1,000 mcg capsule albuterol sulfate 90 mcg/actuation 1 - 2 puffs INH Q6H PRN #18 gm 01/12/20 03/08/22 Rx aerosol inhaler (ProAir HFA) atorvastatin 20 mg tablet 20 mg PO DAILY #90 tab 12/20/20 03/08/22 Rx pantoprazole 40 mg tablet,delayed 40 mg PO DAILY #90 tab 04/11/21 03/08/22 Rx release lisinopril 10 mg tablet 10 mg PO DAILY #90 tab 11/25/21 03/08/22 Rx blood sugar diagnostic #90 ea 12/08/21 03/08/22 Rx blood-glucose meter #1 ea 12/08/21 03/08/22 Rx lancets 33 gauge (OneLukeuch Delmelvina #100 ea 12/08/21 03/08/22 Rx Lancets) dulaglutide 3 mg/0.5 mL 3 mg SUBCUT .weekly #2 ml 12/15/21 03/08/22 Rx subcutaneous [facility] ([facility] metformin 500 mg tablet,extended See Rx Instructions .ROUTE 12/15/21 03/08/22 Rx release 24 hr .COMPLEX #360 tab lorazepam 0.5 mg tablet 0.5 mg PO Q12H PRN #30 tab 12/28/21 03/08/22 Rx escitalopram oxalate 10 mg tablet 15 mg PO DAILY #135 tab 02/14/22 03/08/22 Rx Patient History Medical History Chest pain Cholelithiasis Colitis Head pain Hepatic steatosis HTN (hypertension) Hyperlipidemia LDL goal <100 Hypertriglyceridemia, essential Memory loss Situational anxiety Transaminitis Type 2 diabetes mellitus Visual changes Surgical History History of breast reconstruction History of section History of cholecystectomy History of tooth extraction Family History Mother Cancer skin cancer Grandmother Cardiac disorder Diabetes Uncle Diabetes Other Hypertension Denies family history of Ovarian cancer Prostate cancer Heart disease Myocardial infarction Breast cancer Lung cancer Colorectal cancer Social History Smoking Status: Never smoker Hx Alcohol Use: Yes Hx Substance Use: No Preferred Language: Montserratian Communication Ability: Effective Visual Impairment: No Limitations Hearing Ability: Normal Assistant Hall Director Required: No Beliefs That Will Affect Care: None marital status: Current Living Situation: Spouse current occupational status: employed current occupation: [employer] Other Information That Helps Us Care for You: No Feels Safe at Home: Yes Safety Concerns: Feels Safe At This Time Childhood Exposure to Second-Hand Smoke: No caffeine: Yes Dental Care, Regularly: Yes Physical Activity Frequency: 3-4 Times per Week Seatbelt Use: always Sunscreen Use: Yes Review of Systems Constitutional: no fever and no chills Eyes: as per Subjective / HPI and + diplopia; no blind spots Ear, Nose, Mouth, Throat: no ear pain and no hearing loss Respiratory: no cough and no dyspnea Cardiovascular: no chest pain and no palpitations Gastrointestinal: no constipation and no diarrhea/loose stools Genitourinary: no urinary urgency and no urinary incontinence Musculoskeletal: no muscle weakness and no muscle atrophy Integumentary: no rash and no lesions Neurologic: as per Subjective / HPI, + paresthesia and + headache(s) Psychiatric: no behavioral changes, no depression, no abnormal sleep pattern and no anxiety Hematologic / Lymphatic: no easy bruising and no lymphadenopathy Exam (Neuro) Constitutional: well developed and well nourished; no acute distress Eyes: normal visual ellis by confrontation, PERRL, normal accommodation and EOM intact bilaterally; no fundoscopic abnormality, no nystagmus and no papilledema Cardiovascular: Vessels: normal carotid upstroke; no carotid bruit Neurologic: Oriented to:: Person, Place and Time Memory: Short Term Intact and Remote Intact Attention: Span Intact and Concentration Intact Language: Naming Objects and Repeating Phrases Speech Fluency: negative Dysarthria Speech Aphasia: negative Aphasia Fund of Knowledge: Current Events, Past History and Vocabulary Cranial Nerves: Normal II (Visual ellis full to confrontation, visual acuity normal), III, IV, (Pupils equal round reactive to light and accommodation, eye movements normal), V (Facial sensation intact), VII (There is no facial droop or weakness), VIII (Hearing intact), IX, X (Palate elevates to midline), XI (Shoulder shrug intact) and XII (Tongue protrudes to midline) Motor Strength: Normal Lower Extremities and Normal Upper Extremities; negative Pronator Drift Motor Tone: Normal Lower Extremities and Normal Upper Extremities Muscle Bulk/Involuntary Movements: No Involuntary Movements; negative Muscle Atrophy Sensation: Light Touch Intact, Pain/Temperature Intact, Vibration Intact and Proprioception Intact Coordination: Normal; negative Limited Balance, Dysdiadochokinesia, Finger-Nose Abnormal or Heel-Frank Abnormal Deep Tendon Reflexes: Rt Triceps: 2+, Lt Triceps: 2+, Rt Biceps: 2+, Lt Biceps: 2+, Rt Brachioradialis: 2+, Lt Brachioradialis: 2+, Rt Patellar: 2+, Lt Patellar: 2+, Rt Ankle: 2+ and Lt Ankle: 2+ Special Tests: negative Babinski Present Gait: Normal Station and Gait Results & Data ([facility]) Vital Signs (Past 12 Hours) Vital Signs Temp Pulse Pulse Resp BP BP Pulse Ox 03/09/22 07:28 37.0 C 72 18 123/80 95 03/09/22 02:48 36.6 C 76 18 118/80 96 03/08/22 22:56 36.9 C 70 18 133/32 L 96 03/08/22 22:17 70 Laboratory Results WBC 7.49, hemoglobin 13.1, hematocrit 39.3, MCV 88.5, platelet count 334, ESR 9, sodium 138, potassium 3.6, BUN 9, creatinine 0.42, glucose 135, hemoglobin A1c from this past November was 8.8, calcium 9.4, magnesium 1.9, AST 44, ALT 91, troponin high-sensitivity 4.3, C-reactive protein less than 0.50 vitamin B12 greater than 1500, TSH 1.600, triglycerides 179, cholesterol 155, LDL 83, VLDL 36. Diagnostic Findings I did independently review the recently completed MRI of the brain and cervical spine. Cervical spine MRI appears unremarkable, no evidence of spinal cord demyelination, has mild multilevel disc protrusions without associated spinal or foraminal stenosis. Brain MRI is negative for acute process, no abnormal postcontrast enhancement. There are minimal nonspecific scattered white matter T2/FLAIR hyperintensities. CTA of the head and neck unremarkable. Electrocardiogram reveals a normal sinus rhythm, 76 bpm. Coding Level of Care Code 47498 Initial Inpt Care Lvl 3 Diagnoses Paresthesia R20.2 Blurry vision H53.8 Headache R51.9
[2022-03-09 10:09] LABS: Lyme Ab IgM w/WB Rflx Equivocal (Negative)
[2022-03-09 11:34] LABS: Alanine Aminotransferase 99 U/L (7-52); Albumin Globulin Ratio 1.5 (0.9-2); Albumin Level 4.3 gm/dl (3.4-5.0); Alkaline Phosphatase 54 U/L (34-104); Aspartate Aminotransferase 55 U/L (13-39); Bilirubin,Total 0.6 mg/dl (0.2-1.0); Globulin 2.8 gm/dl (2.5-4.0); Total Protein 7.1 gm/dl (6.0-8.3)
[2022-03-09 11:38] LABS: Estimated Average Glucose 169 mg/dl; Hemoglobin A1C 7.5 % (4.5-5.6)
--- NOTE | 2022-03-09 11:47 | Fluoroscopy Report ---
FLUOROSCOPIC GUIDED LUMBAR PUNCTURE CLINICAL HISTORY: Numbness. Diplopia. Upper extremity weakness. PROCEDURE: The risks, benefits, and alternatives to the procedure is discussed with the patient who v oiced understanding. Written informed consent was obtained. The patient was placed prone on the fluor oscopy table. The lower back was prepped and draped in the usual sterile fashion. 1% lidocaine was us ed for local anesthesia. A 20-gauge spinal needle was inserted into the L4-L5 interlaminar space, and approximately 10 cc of clear colorless cerebrospinal fluid was removed. A single spot image was save d. The patient tolerated the procedure well. There were no immediate complications. The patient was t hen transported to the medical floor for further observation. Fluoroscopy time: 0.1 minutes IMPRESSION: Fluoroscopic guided lumbar puncture with removal of approximately 10 cc of cerebrospinal fluid. There were no immediate complications. ACT 112: Negative or not required by law. Electronically signed by: Fran Nicole M.D. 03/09/2022 11:45 AM
[2022-03-09 12:22] LABS: CSF Glucose 81 mg/dl (40-70)
[2022-03-09 12:50] LABS: Appearance CSF Clear; CSF Count Tube # 3; CSF Xanthrochromic No xanthochromia; Color CSF Colorless; Red Blood Cell CSF (A) 12 /uL (0-); Red Blood Cell CSF (B) 9 /uL (0-); White Blood Cell CSF (A) 0 /uL (0-5); White Blood Cell CSF (B) 1 /uL (0-5)
[2022-03-09 12:51] LABS: CSF Chemistry Tube # 1
[2022-03-09 13:28] LABS: Cryptococcus neoformans/ga PCR Not Detected (NotDetected); Cytomegalovirus PCR Not Detected (NotDetected); Enterovirus PCR Not Detected (NotDetected); Escherichia coli K1 PCR Not Detected (NotDetected); Haemophilius influenzae PCR Not Detected (NotDetected); Herpes Simplex Virus 1 PCR Not Detected (NotDetected); Herpes Simplex Virus 2 PCR Not Detected (NotDetected); Human Herpes Virus 6 PCR Not Detected (NotDetected); Human Parechovirus PCR Not Detected (NotDetected); Listeria monocytogenes PCR Not Detected (NotDetected); Neisseria meningitidis PCR Not Detected (NotDetected); Streptococcus agalactiae PCR Not Detected (NotDetected); Streptococcus pneumoniae PCR Not Detected (NotDetected); Varicella Zoster Virus PCR Not Detected (NotDetected)
[2022-03-09] MEDS ORDERED: LORazepam 0.5 MG TAB PO PRN ×2 (14:31→14:34)
--- NOTE | 2022-03-09 16:20 | Discharge Summary ---
Date of Service March 09, 2022 Admission HPI Per Admitting Provider Tina Richards is a 46 year old right handed female female who presents to the ER fatigue, diplopia, right eye deviation, bilateral extremity tingling and left greater than right upper extremity weakness. Initial symptoms started 2 months ago. She has progressively noticed fatigue, tingling sensation down both arms and fingers more so than her legs, more forgetful and inability to open jars with both hands. Diplopia noticed intermittently but becoming more frequent, episodes last for 1 minute, ongoing for the last month. For the last 2 weeks she has noticed her right eye appears to deviate laterally, a student of hers noticed this happening 2 days ago. Today she is noticing blurring of her left eye vision. She has also noticed shooting pains in her head and neck, no worse on neck flexion, last for seconds but can come on at any time. Main reason she came to the ER today however is left upper extremity weakness, distal > proximal. No worse at the end of the day than the start. She is otherwise well without fever, chills, respiratory or urinary symptoms. She has a diagnosis of IBS and has ongoing problems with diarrhea and constipation but nothing new. Last "head cold" was one month ago. Significant family history of multiple sclerosis of her Grandfather on her mothers side. In the ER stroke workup with CT head and CT angiogram head and neck were negative. She was referred to medicine for blurry vision and left sided weakness. Principal Diagnosis 1. Headache 2. Blurred vision 3. Paresthesias of the bilateral upper extremities 4. Anxiety Discharge Exam General: Resting comfortably in her hospital bed. She does not appear ill or toxic NAD. HEENT: Head is AT/NC. Buccal mucosa is moist and pink Neck: No JVD. Negative hepatojugular reflex Cardiac: RRR with 1/6 DAVE Lungs: CTA without W/R/R Abdomen: Normoactive X4. Soft and nontender in all quadrants. Extremities: No peripheral clubbing cyanosis or edema Neuro: A&O X4. Cranial nerves II through XII are grossly intact. No focal neuro deficits. Cryptologic Linguist strength diminished in the bilateral upper extremities but it is symmetrical. Decreased sensation to the bilateral upper extremities. Skin: No obvious skin lesions or rashes Psych: Appropriate affect. Pleasant and cooperative Discharge Data Allergies Allergy/AdvReac Type Severity Reaction Status Date / Time cat dander Allergy Unknown CAT AND Verified 03/08/22 08:56 DOG DANDER-ITCHY SNEEZING metaxalone Allergy Unknown UNKNOWN Verified 03/08/22 08:56 pollen extracts Allergy Unknown SNEEZING,ITCHY Verified 03/08/22 08:56 EYES amoxicillin [From Augmentin] Allergy swelling Verified 03/08/22 08:56 clavulanic acid Allergy swelling Verified 03/08/22 08:56 [From Augmentin] Consultations 03/08/22 11:20 ED Decision to Admit Stat 03/08/22 14:44 Consult Neurology Routine (1) Paresthesia: (2) Blurry vision: (3) Headache: 46-year-old female presenting with a several week history of low-grade r ight-sided headache, intermittent blurry vision, double vision, and paresthesias of the arm. Reported a nonspecific upper respiratory infection occurring 2 to 3 weeks ago, no recent vaccinations. Has a history of poorly controlled diabetes mellitus, hypertriglyceridemia, and hepatic steatosis. Remote history of migraine although current headache seems different. She has an intact neurological examination at this time. No evidence of afferent pupillary defect, internuclear ophthalmoplegia, abnormality of ocular motility, or focal motor or sensory deficit of any limb. Reported symptoms are varied and intermittent, occurring over the past few weeks after nonspecific upper respiratory infection. Her clinical presentation is not classic or specific for multiple sclerosis. She does not present with optic neuritis, internuclear ophthalmoplegia or other brainstem syndrome, or transverse myelitis. I do note that she has minimal nonspecific scattered white matter T2/FLAIR hyperintensiti es on brain MRI. These abnormalities are likely chronic and could very well relate to microvascular ischemic disease given her medical comorbidities. No evidence of spinal cord lesions. Multiple sclerosis may not be completely excluded, however. TIA could also be considered. I agree with lumbar puncture/CSF analysis including MS panel which has been ordered under fluoroscopy. I know she has normal inflammatory markers. Follow- up with MARLEY screen. Lyme IgG antibody screening negative, follow-up with IgM when available. Would also follow-up with most recent hemoglobin A1c result when available. I will also order acetylcholine receptor antibodies although my clinical suspicion for myasthenia gravis is low given her constellation of symptoms. Would also recommend an echocardiogram and consider starting daily low-dose aspirin after completion of lumbar puncture. 30-day mobile cardiac outpatient telemetry. Ordered Studies CXR: IMPRESSION: 1. There is a decreased inspiratory effort with otherwise no acute chest disease. 03/08/22 08:28 CT angio head w con Stat CT angio neck with con Stat CT head/brain wo con Stat IMPRESSION: 1. No acute intracranial abnormality. 2. Unremarkable CTA of the head and neck. 03/08/22 11:54 MR brain MS wo/w con Stat MR cervical spine wo/w con Stat IMPRESSION: 1. No acute intracranial abnormalities. 2. No enhancing plaques or MR findings suspicious for multiple sclerosis. IMPRESSION: 1. Normal signal of the cervical spinal cord. 2. No abnormal enhancement. 3. Mild degenerative changes as above. No significant central canal or neural foraminal narrowing. 03/09/22 11:00 FL lumbar puncture diagnostic Routine IMPRESSION: Fluoroscopic guided lumbar puncture with removal of approximately 10 cc of cerebrospinal fluid. There were no immediate complications. Hospital Course (1) Blurry vision: (2) Paresthesia: (3) Headache: (4) Type 2 diabetes mellitus: (5) HTN (hypertension): Mrs. Richards is a 46-year-old white female with an underlying past medical history of NIDDM, anxiety, hyperlipidemia, and HTN. She presented to the emergency department with intermittent complaints of blurred vision, right-sided headache, and left arm weakness. Symptoms waxing and waning over the past several weeks. In addition, has had increased anxiety which seems to increase the paresthesias (mostly in the left arm but at times reports right-sided symptoms as well). CT of the head unremarkable. Lab data (including her CBC and metabolic panel) unremarkable. MRI of the brain and neck: Nonspecific white matter changes concerning for small vessel disease noted. No obvious plaque or evidence of MS. MRI of the C-spine shows bulging disks without central canal stenosis. Patient seen by neurology and had a full battery of labs/diagnostics TSH normal CRP/ESR: Normal (<0.50/9 respectively Acetylcholine receptor antibody: Pending. Per neurology, myasthenia gravis unlikely Lumbar puncture: Pending. Per neurology, MS unlikely B12: Normal at >1500 Vitamin D: Pending Lyme titer has since come back equivocal. It has since been sent off for Western blot. She will be started on doxycycline 100 mg twice daily. Would continue X 21 days if Western blot positive. If negative, can stop antibiotic. A1c: 7.5%control Given the white matter changes on her MRI, neurology has recommended an echocardiogram and addition of aspirin (in the setting of your diabetes mellitus). Echocardiogram has been doneresults currently unavailable At this time, it is highly suspected that the patient is having complex migraines. In addition, I think her uncontrolled anxiety is contributing to her symptomatology. I did discuss this with neurology who feels that this is likely the cause of her symptoms. Will initiate Elavil 25 mg at bedtime (which should help with migraine prevention but also her anxiety. At this point time, patient is medically and hemodynamically stable for discharge to home. Her work-up has been initiated. Some results are still pending. She is medically and hemodynamically stable for discharge to home. Will need neurology follow-up (for which case management will facilitate) and follow-up to see her PCP Total Time Total Time Spent Total Time Spent (In Minutes): 30 min Discharge Plan Discharge Items Patient Disposition: Home - Self-Care Reason For Visit: SUSPECTED MULTIPLE SCLEROSIS FLARE Discharge Diagnosis: 1. Paresthesias 2. Blurred vision 3. Headache 4. Anxiety 5. Equivocal Lyme Activity: Resume your previous activity Non-emergency contact: Primary Care Provider and Neurologist Call non-emergency contact if: you have any medication questions and your symptoms worsen Follow-up/Referrals: Man Nuno MD [Primary Care Provider] - Anum Evans PA-C [Physician Computer Game Tester] - 03/15/22 11:45 am ([facility]) Diet: Carb Consistent or DM2 Addtl Attending Provider Instructions: You presented to the emergency department with complaints of intermittent headaches, blurred vision, and paresthesias (numbness/tingling of your upper extremities). The exact etiology of your symptoms is unclear. You had multiple labs and diagnostics to help differentiate (to rule out multiple sclerosis, myasthenia gravis, other inflammatory processes). A lumbar puncture was also performed. So far, your Lyme test is equivocal (which means you potentially may have Lyme disease but the confirmatory test is pending). Underlying Lyme could be contributing greatly to your symptoms. At this point, you have been prescribed doxycycline to take twice daily. If your Western blot (confirmatory Lyme test) comes back positive, you need to complete 21 days of treatment. If it comes back negative, you can stop this antibiotic. Doxycycline can cause acid reflux. If this occurs, utilize [id number] antireflux meds (Pepcid) You had an MRI of your cervical spine. There is mild bulging of the discs but nothing that is causing cord compression. I did review this with a cardiac exercise specialist (who reviewed your imaging and reports this is unlikely the cause of your symptoms). You were seen by Neurology who agreed that you very well could be experiencing complex migraines. You are being started on amitriptyline. Take this medication at bedtime. This should help prevent migraines but also will help with your anxiety. Last, your MRI showed some white matter changes that could be due to small vessel disease. The neurologist is recommending that you take a baby aspirin once daily. In addition, it is imperative that you were blood sugars remain controlled. Pending Studies at Discharge: Yes Studies:: Lumbar puncture. Western blot. Echocardiogram Stand-Alone Forms: My [facility] [place], Work/School Release Medications and DC Order Prescriptions: New doxycycline hyclate 100 mg capsule 100 mg PO BID 21 Days Qty: 42 RF: 0 amitriptyline 25 mg tablet 25 mg PO HS Qty: 30 RF: 0 Continued albuterol sulfate [ProAir HFA] 90 mcg/actuation HFA aerosol inhaler 1 - 2 puffs INH Q6H PRN (Reason: shortness of breath or wheezing) Qty: 18 RF: 3 atorvastatin 20 mg tablet 20 mg PO DAILY Qty: 90 RF: 3 pantoprazole 40 mg tablet,delayed release (DR/EC) 40 mg PO DAILY Qty: 90 RF: 3 lisinopril 10 mg tablet 10 mg PO DAILY Qty: 90 RF: 3 (DME) blood-glucose meter Kit See Rx Instructions .Route Qty: 1 RF: 0 (DME) blood sugar diagnostic Strip See Rx Instructions .ROUTE .MEDSUPPLY Qty: 90 RF: 3 (DME) lancets [OneTouch Delica Lancets] 33 gauge misc See Rx Instructions .ROUTE .MEDSUPPLY Qty: 100 RF: 3 lorazepam 0.5 mg tablet 0.5 mg PO Q12H PRN (Reason: anxiety) Qty: 30 RF: 0 escitalopram oxalate 10 mg tablet 15 mg PO DAILY Qty: 135 RF: 3 metformin 500 mg tablet extended release 24 hr See Rx Instructions .ROUTE .COMPLEX Qty: 360 RF: 3 Trulicity 3 mg/0.5 mL pen injector 3 mg subcut .weekly Qty: 2 RF: 3 cyanocobalamin (vitamin B-12) 1,000 mcg capsule 1,000 mcg PO DAILY RF: 0 Discharge Orders: Discharge Order (Routine); Ordered 03/09/22 Ordered By: Tina Du/Other Patient Handouts: Managing Type 2 Diabetes Admission Data Admit Date/Time: 03/08/22 12:39 Attending Provider: Waldemar Xavier Admit Provider: Sandro Chaudhary Primary Care Provider: Man Nuno Other Providers: Sandro Chaudhary ; Guanakito Rehman Coding Level of Care Code 61636 OBS Care - Discharge Diagnoses Blurry vision H53.8 Paresthesia R20.2 Headache R51.9 Type 2 diabetes mellitus E11.9 HTN (hypertension) I10
--- NOTE | 2022-03-09 17:24 | XCELERA ---
[id number]
[2022-03-10 12:02] LABS: Anti Nuclear Antibody Screen NEGATIVE (NEGATIVE)
--- NOTE | 2022-03-10 17:46 | Electrocardiogram Report ---
Test Reason : Blood Pressure : / mmHG Vent. Rate : 076 BPM Atrial Rate : 076 BPM P-R Int : 144 ms QRS Dur : 100 ms QT Int : 408 ms P-R-T Axes : 026 -11 005 degrees QTc Int : 459 ms Poor data quality, interpretation may be adversely affected Normal sinus rhythm Minimal voltage criteria for LVH, may be normal variant Borderline ECG When compared with ECG of 08-MAR-2022 08:52, No significant change was found Confirmed by Jaiden Rob ([id number] on 03/10/2022 5:46:30 PM Referred By: Man Nuno Confirmed By:Alvino Rob
[2022-03-13 16:01] LABS: Lyme DNA PCR CSF or Synovial Not detected (Not Detected); Lyme DNA Source CSF
[2022-03-14 01:36] LABS: 18KDIGG Band NON-REACTIVE; 23KDIGG Band NON-REACTIVE; 23KDIGM Band REACTIVE; 28KDIGG Band NON-REACTIVE; 30KDIGG Band NON-REACTIVE; 39KDIGG Band NON-REACTIVE; 39KDIGM Band NON-REACTIVE; 41KDIGG Band NON-REACTIVE; 41KDIGM Band NON-REACTIVE; 45KDIGG Band NON-REACTIVE; 58KDIGG Band NON-REACTIVE; 66KDIGG Band NON-REACTIVE; 93KDIGG Band NON-REACTIVE; Lyme Antibodies, WB IgG NEGATIVE (NEGATIVE); Lyme Antibodies, WB IgM NEGATIVE (NEGATIVE)
== END 2022-03-09 16:46 | disposition home or self-care (01) ==
LOC: ED 07:58 → 2W 07:58 → SUATTDRO 12:39 → 2W 14:39